=== PATIENT | female | born 1955 | race Caucasian/White ===

== ENCOUNTER 2018-06-03 09:43 | Emergency (ER) | payer SELFPAY ==
[2018-06-03] VITALS (7 sets, daily range): BP systolic 126–136; BP diastolic 65–84; PULSE 104–109; RESP 4–24; TEMP 36.8; O2SAT 94–96
--- NOTE | 2018-06-03 10:11 | DI.RAD_ITS ---
SYMPTOMS/DIAGNOSIS: COUGH, FEVER PA AND LATERAL CHEST: Comparison is made with 8Aug13. The cardiac and mediastinal contours have a normal appearance. The lungs appear clear. No infiltrate or effusion is seen. IMPRESSION: Negative chest x-ray.
[2018-06-03] MEDS: Acetaminophen 325 MG TAB 650 MG PO (10:21)
[2018-06-03] MEDS: predniSONE 20 MG TAB 60 MG PO (10:22)
[2018-06-03] MEDS: Albuterol/Ipratropium 3 ML UPD VIAL UPD ×2 (10:22→11:28)
[2018-06-03] MEDS: Benzonatate 100 MG CAP PO (10:22)
--- NOTE | 2018-06-03 10:35 | ED.GENADUL_ITS ---
Discharge Plan Disposition Patient Disposition: HOME Condition: Stable Discharge Details Chief Complaint: RespSymp Clinical Impression: Influenza, COPD (chronic obstructive pulmonary disease) Primary Care Provider: Morelia Mejia ED Provider: Jamie Lopez Home Meds and New Rx's Prescriptions: New prednisone 20 mg tablet 40 mg PO DAILY 4 Days Qty: 8 RF: 0 oseltamivir [Tamiflu] 75 mg capsule 75 mg PO Q12H 5 Days Qty: 10 RF: 0 Continued pantoprazole 40 MG tablet,delayed release (DR/EC) 40 mg PO DAILY RF: 0 fexofenadine [Aller-ease] 180 MG tablet 180 mg PO DAILY RF: 0 lisinopril 20 MG tablet 20 mg PO DAILY RF: 0 oxycodone 5 MG tablet 5 mg PO Q4H PRN PRNQty: 14 RF: 0 Advair Diskus 1 EACH blister with device 1 ea Inhalation DAILY Qty: 14 RF: 0 Ventolin HFA 200 PUFF HFA aerosol inhaler 2 puff Inhalation Q4H PRN PRN (Reason: shortness of breath or wheezing) Qty: 8 RF: 0 Discharge Instructions Instructions: Influenza (ED), COPD (Chronic Obstructive Pulmonary Disease) (ED) Additional Instructions: Return immediately to the emergency department for any new or significant worsening symptoms including severe shortness of breath, or any further concerns. Otherwise you should follow-up with your primary care provider next couple days and take medication as prescribed. Referrals: Morelia Mejia [Primary Care Provider] - (Please follow-up with your primary care provider next 1-2 days for reassessment) Discharge Data Discharge Date/Time-TO BE ENTERED AT DEPARTURE: 06/03/18 12:25 Medical Decision Making Patient presenting the emergency department for chief complaint of cold/flulike symptoms. Patient states that this started 2 days ago after being around someone who had similar symptoms. She is concern for pneumonia. Patient does have COPD but has been without her inhalers due to a lapse of her insurance. Patient states subjective fever, headache, body aches, nasal congestion, sore throat and cough with difficulty breathing. Physical exam shows significant diffuse wheezing throughout all lung anthony, sinus tenderness, and otherwise unremarkable exam. Patient is afebrile and not hypoxic at this time but is slightly tachycardic. Plan to check chest x-ray and influenza swab. Pending results patient given Tylenol, Motrin, DuoNeb, Tessalon Perles. After review of chest x-ray that shows no acute findings and no obvious infiltrates patient was reassessed. Patient does have slight improvement in wheezing plan on doing second nebulizer treatment. Influenza test was reviewed as positive and patient reassessed and has significant improvement in wheezing and now only mild scattered wheezes heard throughout. Patient was able to ambulate through the department and had minimal change in O2 saturation/not becoming hypoxic, and only mild elevation of heart rate. Patient started on Tamiflu and first dose given in the emergency department. Due to financial constraints care management was contacted to assist patient with home medications being prescribed. Care management stated that [facility] would be able to help patient with medications and reinstating her insurance. Care management was also informed that I request a 1-2-day follow-up with her primary care given patient having significant COPD and influenza to make sure the patient does not declining condition. After discussion of diagnosis and plan of care patient has no further needs, questions, or concerns and states clear understanding to return to the emergency department for any worsening symptoms. HPI General Mode of arrival: ambulatory . Date/Time Provider Initiated Documentation: 06/03/18 10:01 . Limitations to Documentation: no limitations . Information obtained by: patient and RN notes reviewed . History of Present Illness 62 year old F presents to the emergency department with the chief complaint of cough, fever, cold symptoms, described as moderate, with intensity rated at 2. Quality is described as aching, and is localized to the head. Patient reports no radiation. Patient started experiencing this day(s) (2) and it has been constant. No relieving factors improve symptom(s), No exacerbating factors reported . Patient did receive the following treatments prior to arrival, none Related Data Home Medications Medication Instructions Recorded Confirmed pantoprazole 40 mg PO DAILY 01/07/13 06/03/18 fexofenadine [Aller-ease] 180 mg PO DAILY 07/16/16 06/03/18 lisinopril 20 mg PO DAILY 07/16/16 06/03/18 oxycodone 5 mg PO Q4H PRN PRN #14 tab 07/17/16 06/03/18 Advair Diskus 1 ea INHALATION DAILY #14 each 06/03/18 Ventolin HFA 2 puff INHALATION Q4H PRN PRN #8 gm 06/03/18 oseltamivir [Tamiflu] 75 mg PO Q12H 5 Days #10 cap 06/03/18 prednisone 40 mg PO DAILY 4 Days #8 tab 06/03/18 Previous Rx's Medication Instructions Recorded oxycodone 5 mg PO Q4H PRN PRN #14 tab 07/17/16 Advair Diskus 1 ea INHALATION DAILY #14 each 06/03/18 Ventolin HFA 2 puff INHALATION Q4H PRN PRN #8 gm 06/03/18 oseltamivir [Tamiflu] 75 mg PO Q12H 5 Days #10 cap 06/03/18 prednisone 40 mg PO DAILY 4 Days #8 tab 06/03/18 Allergies Allergy/AdvReac Type Severity Reaction Status Date / Time Penicillins Allergy Severe Anaphylaxsi Unverified 06/03/18 09:52 s General Stated Complaint: RespSymp NANCI: 4 Review of Systems Constitutional Reports chills, Reports fatigue, Reports fever(s), Reports headache(s) and Reports malaise ENT Denies otalgia, Reports headache(s), Reports nasal congestion, Reports sinus pressure and Reports sore throat Cardiovascular Denies chest pain and Reports dyspnea Respiratory Reports chest congestion, Reports cough, Reports pain with cough and Reports dyspnea Gastrointestinal Denies abdominal pain, Denies nausea and Denies vomiting Musculoskeletal Denies joint swelling Integumentary/Breasts Denies rash Neurologic Reports headache(s) Endocrine Reports fatigue PFSH Medical History COPD (chronic obstructive pulmonary disease) (Chronic) Social History Smoking/Tobacco Use Status: Current every day Exam Const General: cooperative, comfortable and no acute distress Orientation: alert, awake and oriented x3 HENMT Head: normal to inspection Ears: hearing grossly normal bilaterally Face and sinus: sinus tenderness frontal and maxillary Mouth: oral mucosae normal Throat: uvula midline and abnormal tonsil bilaterally erythema (mild) Eyes General: appearance normal, both eyes and all related structures Conjunctivae: conjunctivae normal Sclera: sclerae normal Neck Neck: normal visual inspection, full ROM, no lymphadenopathy, meningismus present and no JVD Resp Effort & Inspection: normal respiratory effort, able to speak in complete sentences, audible wheezes, cough Quality of cough: actively coughing and not labored Auscultation: wheezes expiratory wheezes and scattered wheezes Cardio Rate: tachycardic Rhythm: regular rhythm Heart Sounds: S1 normal and S2 normal Skin General skin exam: no rashes or lesions noted and dry skin Rashes: no rashes Neuro General: alert, awake, oriented x3 and gait normal Course Vital Signs Temperature 36.8 C 06/03/18 09:49 Pulse 109 H 06/03/18 09:49 Respiratory Rate 16 06/03/18 09:49 Blood Pressure 126/84 06/03/18 09:49 Pulse Oximetry 96 06/03/18 09:49 Temperature 36.8 C 06/03/18 09:49 Temperature Source Skin 06/03/18 09:49 Pulse 109 H 06/03/18 09:49 Respiratory Rate 16 06/03/18 09:49 Respiratory Effort Non-Labored 06/03/18 09:54 Blood Pressure 126/84 06/03/18 09:49 Blood Pressure Position Sitting 06/03/18 09:49 Pulse Oximetry 96 06/03/18 09:49 Oxygen Delivery Method Room Air 06/03/18 09:49 Oxygen Flow Rate 0 06/03/18 09:49 Pain Level 10 06/03/18 09:49 Lab/Test Results Lab/Test Results: 06/03/18 10:27 Nasopharynx Influenza Types A,B Antigen - Pending
[2018-06-03] MEDS: Oseltamivir 75 MG CAP PO (11:28)
--- NOTE | 2018-06-04 07:54 | PDOC.ERCMPRO ---
Care Management Progress Note 06/04-Shmuel requested assistance with a 1-2 day f/u appt with PCP (Jackie) for flu and COPD exacerbation. Referral faxed to [facility]. Patient also states that her Medicaid has . She has no money to pay for her prescriptions. Patient was given a [facility] Brochure and sent over for assistance with reapplying for Medicaid and assistance in paying for scripts for today.
== END 2018-06-03 12:25 | disposition home or self-care (01) ==
PROVIDERS: Emergency Provider Nurse Practitioner Family; PCP Nurse Practitioner
DX: J10.1 Influenza due to other identified influenza virus with other respiratory manifestations (principal); J44.9 Chronic obstructive pulmonary disease, unspecified; F17.210 Nicotine dependence, cigarettes, uncomplicated
CPT/HCPCS: 87449; 94640; 99284; 71046; 99283; J7512; J7620

== ENCOUNTER 2022-12-16 21:30 | Emergency (ER) | payer MEDICARE, OTHER, SELFPAY ==
--- NOTE | 2022-12-16 21:15 | RT.EKG_ITS ---
APPROVED REPORT Exam: Resting ECG Reason for Exam: syncope Patient Location: E HR:93 bpm ECG Measurements Heart Rate 93 AXIS SD 118 P 50 QRSd 100 QRS 72 QT 384 T 50 QTc 479 Conclusion Sinus rhythm...normal P axis, V-rate 60- [address] segment or T wave abnormalities to suggest occlusive [place]
--- NOTE | 2022-12-16 21:30 | DI.CT_ITS ---
Exam(s) CT CHEST/ABD/PEL W EXAM: CT CHEST/ABD/PEL W CLINICAL HISTORY: SOB, right anterior chest TTP, fall down 3 steps TECHNIQUE: Imaging Protocol: Axial computed tomography images with coronal and sagittal reformatted images were created and reviewed CONTRAST MATERIAL: Intravenous: Omnipaque 350 contrast volume:100 mL Oral: No COMPARISON: No exams were available for comparison FINDINGS: The examination is limited due to patient motion artifact. CHEST: Tracheobronchial tree: Patent where visualized. Pulmonary parenchyma: There are few noncalcified pulmonary nodules. There is a 3 mm nodule in the ri ght lung apex. There is a 4 mm nodule in the left upper lobe. No architectural distortion. Visualized thyroid gland: Unremarkable. Mediastinum and Mirta: No dominant adenopathy or fluid collection. The esophagus is unremarkable. The re is a small hiatal hernia. Pleura: No effusion or pneumothorax. Heart: The heart is not dilated. Mild coronary artery calcification is present. No pericardial effus ion. Pulmonary arteries: Subsegmental pulmonary arteries are not well opacified. No central or segmental pulmonary emboli are seen. Aorta: Thoracic aorta non-dilated. There is no evidence of dissection. Mild atherosclerosis is prese nt. Lymph nodes: Within normal limits. Soft tissues: Unremarkable. Bones:Within normal limits for the patient's age. There appears to be a nondisplaced fracture involv ing the right aspect inferior endplate of T6. (Series 8 images 66 through 68). There is no signific ant loss in height of the vertebral body. ABDOMEN: Liver: Normal density. No measurable mass. Hepatomegaly. Portal, Superior Mesenteric, and Splenic Veins: Unremarkable. Gallbladder and Biliary Tract: No radiodense calculus or dilation. Pancreas: Normal density, no abnormal calcifications or inflammatory process. Spleen: Normal. Adrenals: No masses seen. Kidneys: Normal size, contour and axis. No radiodense stones or obstructive uropathy. No masses seen. Abdominal Aorta: Abdominal portion non-dilated. Atherosclerosis. Bowel: No obstruction or bowel wall thickening. There is no evidence of appendicitis. Peritoneal Cavity: No ascites, collection or mesenteric inflammatory response. No free air. Lymph Nodes: Within normal limits. Bones: Within normal limits for the patient's age. Soft Tissues: Unremarkable. PELVIS: Bladder: Symmetric distention, no gross wall thickening. Reproductive Organs: Unremarkable as visualized. Lymph Nodes: Within normal limits. Bones: Within normal limits. IMPRESSION: 1. No acute pulmonary process. 2. A few pulmonary nodules. The largest measures 4 mm. In low risk patients, no follow-up is defini tely recommended. In high risk patients (history of smoking or other risk factors), CT scan of the c hest in 12 months may be obtained. 3. Findings of a nondisplaced fracture involving the right aspect of the inferior endplate of T6. 4. No acute abdominal or pelvic organ injury. 5. Findings were discussed with Dr. Velazquez at 12:25 p.m. on 12/17/2022. RADIATION DOSE DELIVERED: 849.82mGy.cm Total DLP DATA REPOSITORY: All CT scans at this facility are submitted to the National Radiology Data Registry (NRDR) Dose Index Registry (DIR) with the [employer] (ACR). RADIATION OPTIMIZATION: All CT scans at this facility use at least one of these dose optimization te chniques: automated exposure control; mA and/or kV adjustment per patient size (includes targeted exa ms where dose is matched to clinical indication); or iterative reconstruction.
--- NOTE | 2022-12-16 21:30 | DI.CT_ITS ---
Exam(s) CT HEAD CERVICAL SPINE WO EXAM: CT HEAD CERVICAL SPINE WO CLINICAL HISTORY: possible syncope, fall down 2-3 steps, no HS. TECHNIQUE: Imaging Protocol: Axial computed tomography images with coronal and sagittal reformatted images were created and reviewed COMPARISON: No exams were available for comparison FINDINGS: The examination is limited due to patient motion artifact. CT Head: Ventricles and Extra axial spaces: Normal in size and morphology for the patient's age. Hemorrhage: None. Cerebral parenchyma: Normal. Midline shift: None. Brainstem/Cerebellum: Normal. Calvarium: Normal. Visualized Paranasal sinuses/Mastoids: Clear. Soft Tissues: Unremarkable. CT Cervical Spine: Bones: No acute fracture or subluxation. Degenerative changes are seen in the spine. Soft Tissues: Unremarkable. Lung Apices: Emphysematous changes are seen in the lung apices. There is a 3 mm nodule in the right upper lobe. Please refer to the CT scan of the chest abdomen and pelvis report for complete details. IMPRESSION: 1. No acute intracranial process. 2. No acute fracture or subluxation in the cervical spine. RADIATION DOSE DELIVERED: 1,137.17mGy.cm Total DLP DATA REPOSITORY: All CT scans at this facility are submitted to the National Radiology Data Registry (NRDR) Dose Index Registry (DIR) with the [employer] (ACR). RADIATION OPTIMIZATION: All CT scans at this facility use at least one of these dose optimization te chniques: automated exposure control; mA and/or kV adjustment per patient size (includes targeted exa ms where dose is matched to clinical indication); or iterative reconstruction.
[2022-12-16 21:38] VITALS: BP 125/63; PULSE 94; RESP 16; TEMP 36.6; O2SAT 96
[2022-12-16] MEDS: Albuterol/Ipratropium 3 ML UPD VIAL UPD (21:52)
--- NOTE | 2022-12-16 21:59 | ED.GENADUL_ITS ---
Discharge Plan Discharge Details Chief Complaint: Fall/Non TraumaCriteria Primary Care Provider: Morelia Mejia ED Provider: Meghan Batista Home Meds and New Rx's Prescriptions: No Action pantoprazole 40 MG tablet,delayed release (DR/EC) 40 mg PO DAILY Patient Comments: DECIDE SHE DIDNT NEED IT AND COSTS TOO MUCH MONEY fexofenadine [Aller-ease] 180 MG tablet 180 mg PO DAILY Patient Comments: DECIDE SHE DIDNT NEED IT AND COSTS TOO MUCH MONEY lisinopril 20 MG tablet 20 mg PO DAILY Patient Comments: DECIDE SHE DIDNT NEED IT AND COSTS TOO MUCH MONEY oxycodone 5 MG tablet 5 mg PO Q4H PRN PRNQty: 14 0RF Patient Comments: DECIDE SHE DIDNT NEED IT AND COSTS TOO MUCH MONEY fluticasone propion-salmeterol [Advair Diskus] 1 EACH blister with device 1 ea Inhalation DAILY Qty: 14 0RF Patient Comments: DECIDE SHE DIDNT NEED IT AND COSTS TOO MUCH MONEY albuterol sulfate [Ventolin HFA] 200 PUFF HFA aerosol inhaler 2 puff Inhalation Q4H PRN PRN (Reason: shortness of breath or wheezing) Qty: 8 0RF Patient Comments: DECIDE SHE DIDNT NEED IT AND COSTS TOO MUCH MONEY Medical Decision Making 67yo F with COPD, HTN, not on anticoagulation, presenting after fall. Arrives via EMS, history from EMS and patient. Large amount of ETOH consumption this evening, tripped going up stairs on 2 or 3rd step and fell backwards landing on her buttocks. No HS or LOC. Reports low back/coccyx pain. Vital signs reassuring on arrival, on exam she is clinically intoxicated, right anterior chest wall TTP, bilateral wheezing (reports not taking her breathing treatments today). Given duoneb treatment. With age, low back pain, chest tenderness, an d current intoxication CT keys scan ordered. CT head and c-spine with no traumatic findings. Labs ordered and reviewed; CBC & CMP with no actionable abnormalities, ETOH 230. EKG sinus rhythm, appropriate intervals, no ST segment or T wave abnormalities to suggest occlusive [place]. On reassessment breath sounds clear bilaterally, reports her breathing has much improved. Signed out to Dr. Thayer, patient radiology read on CT CAP and sober re-eval. Imaging Data Radiologic Study: Imaging: CT Scan (head and c spine) Radiologist's impression: IMPRESSION: No acute intracranial hemorrhage No acute cervical fracture 3mm right upper lobe nodule. Comparison with prior helpful. Otherwise, nonurgent chest CT recommended. Radiologic Study #2: Imaging: CT Scan Lab Data Labs: Laboratory Tests Range/Units 12/16/22 12/16/22 12/16/22 22:00 22:00 22:00 WBC (4.4-10.8) 10^3/uL 12.22 H RBC (3.93-5.22) 10^6/uL 4.25 Hgb (11.2-15.7) g/dL 13.1 Hct (36.0-46.0) % 38.9 MCV (80-95) fL 92 MCH (27.0-33.0) pg 30.8 MCHC (32.0-36.0) % 33.7 RDW (11.7-14.6) % 13.0 Plt Count (130-400) 10^3/uL 231 MPV (8.0-11.0) fL 9.5 Immature Gran % 1.1 Neutrophils % 68.9 Lymphocytes % 22.9 Monocytes % 5.2 Eosinophils % 1.6 Basophils % 0.3 Nucleated RBC % (0.0-0.3) % 0.0 Absolute Neutrophils (1.2-6.7) 10^3/uL 8.42 H Absolute Lymphocytes (1.2-3.4) 10^3/uL 2.80 Absolute Monocytes (0.1-0.8) 10^3/uL 0.64 Absolute Eosinophils (0.0-0.7) 10^3/uL 0.20 Absolute Basophils (0.0-0.2) 10^3/uL 0.04 Sodium (136-145) mmol/L 135 L Potassium (3.5-5.1) mmol/L 3.5 Chloride (98-107) mmol/L 100 Carbon Dioxide (21.0-32.0) mmol/L 22.5 Anion Gap (3-11) mmol/L 12.5 H BUN (7-18) mg/dL 10 Creatinine (0.55-1.02) mg/dL 0.8 Est GFR (CKD-EPI 2020) (mL/min/1.73m2) 81.21 Glucose (74-106) mg/dL 293 H Calcium (8.5-10.1) mg/dL 8.7 Magnesium (1.8-2.4) mg/dL 1.9 Total Bilirubin (0.2-1.0) mg/dL 0.3 AST (15-37) U/L 40 H ALT (14-59) U/L 37 Alkaline Phosphatase (46-116) U/L 111 Troponin I (<or=60) ng/L < 50 Total Protein (6.4-8.2) g/dL 7.9 Albumin (3.4-5.0) g/dL 3.6 Lipase (16-77) U/L 90 H Ethyl Alcohol (<10) mg/dL 229.3 H HPI General Mode of arrival: ambulatory . Date/Time Provider Initiated Documentation: 12/16/22 21:42 . Limitations to Documentation: altered mental status . Information obtained by: patient and EMS . HPI Narrative: 67yo F with COPD, HTN, not on anticoagulation, presenting after fall. Arrives via EMS. Reports drinking this evening, 5-6 beers and 2-3 shots and some more. Went to walk up stairs and tripped on 2nd or 3rd step, fell backwards and landed on her buttocks. No head strike or loss of consciousness. Reports low back pain, otherwise denies pain. Does report some shortness of breath, unclear onset, states she has not been taking her breathing treatments. Denies headache, neck pain, chest pain, abdominal pain, extremity pain, numbness, tingling, weakness, headache, nausea, vomiting, or other concerns. She was in her usual state of health this morning before this event. Related Data Home Medications Medication Instructions Recorded Confirmed pantoprazole 40 mg tablet,delayed 40 mg PO DAILY 01/07/13 12/16/22 release fexofenadine 180 mg tablet 180 mg PO DAILY 07/16/16 12/16/22 (Aller-ease) lisinopril 20 mg tablet 20 mg PO DAILY 07/16/16 12/16/22 oxycodone 5 mg tablet 5 mg PO Q4H PRN PRN ##14 07/17/16 12/16/22 albuterol sulfate 90 mcg/actuation 2 puff inhalation Q4H PRN PRN 06/03/18 12/16/22 aerosol inhaler (Ventolin HFA) shortness of breath or wheezing #8 grams fluticasone 250 mcg-salmeterol 50 1 ea inhalation DAILY #14 ea 06/03/18 12/16/22 mcg/dose blistr powdr for inhalation (Advair Diskus) Previous Rx's Medication Instructions Recorded oxycodone 5 mg tablet 5 mg PO Q4H PRN PRN ##14 07/17/16 albuterol sulfate 90 mcg/actuation 2 puff inhalation Q4H PRN PRN 06/03/18 aerosol inhaler (Ventolin HFA) shortness of breath or wheezing #8 grams fluticasone 250 mcg-salmeterol 50 1 ea inhalation DAILY #14 ea 06/03/18 mcg/dose blistr powdr for inhalation (Advair Diskus) Allergies Allergy/AdvReac Type Severity Reaction Status Date / Time Penicillins Allergy Severe Anaphylaxsi Unverified 12/16/22 21:43 s General Stated Complaint: Fall/Non TraumaCriteria NANCI: 3 Review of Systems Narrative: see HPI PFSH All Active Problems COPD (chronic obstructive pulmonary disease) (Chronic) Social History Smoking/Tobacco Use Status: Current every day Smoking risk assessment performed?: Yes Alcohol Intake: current Drug use: Never Do you feel safe at home: Yes Do you feel safe in your relationship?: Yes Exam Narrative Exam Narrative: GENERAL: Alert, in no acute distress. SKIN: Warm and well perfused. HEAD: Atraumatic, normocephalic without edema, discoloration or evidence of trauma. Facial bones without deformities or tenderness. EYES: PERRL. No scleral icterus or conjunctival injection. Extraocular muscles intact without nystagmus or diplopia. No proptosis or enophthalmos. MOUTH: Moist mucus membranes without blood. NECK: Trachea midline. No discolorations or edema. CV: Regular rate and rhythm, Normal s1 and s2. No murmurs, rubs, or gallops. PV: Radial pulses 2+ bilaterally and symmetric. Dorsalis pedis pulses 2+ bilaterally and symmetric. 2+ capillary refill. No extremity edema. CHEST: No abrasions or ecchymosis. Chest symmetric with respirations. Right anterior chest wall TTP. No crepitus. Diffuse wheeze bilaterally, no increased work of breathing. ABDOMEN: No ecchymosis or abrasions. Soft, nondistended, nontender. BACK: No abrasions, skin openings, or ecchymosis. Spine without bony tenderness, no step offs. PELVIC: Pelvis stable, nontender to lateral compression : Normal external genitalia. No ecchymosis or edema. MSK: No gross deformities or discolorations or lesions. Tolerates full range of motion of extremities without tenderness. NEURO: Alert and oriented to person, place, and time. GCS 15. Sensation grossly intact. Moves all extremities freely against gravity. Speech slightly slurred. Clinically intoxicated. Gait not tested. Course Vital Signs Vital signs: Vital Signs Temperature 36.6 C 12/16/22 21:38 Pulse 94 H 12/16/22 21:38 Respiratory Rate 16 12/16/22 21:38 Blood Pressure 125/63 12/16/22 21:38 Pulse Oximetry 96 12/16/22 21:38 Temperature 36.6 C 12/16/22 21:38 Pulse 94 H 12/16/22 21:38 Respiratory Rate 16 12/16/22 21:38 Respiratory Effort Normal 12/16/22 21:40 Blood Pressure 125/63 12/16/22 21:38 Pulse Oximetry 96 12/16/22 21:38 Oxygen Delivery Method Room Air 12/16/22 21:38 Oxygen Flow Rate 0 12/16/22 21:38 Pain Level 7 12/16/22 21:38 PAWSS Have you Been Recently Intoxicated or Drunk Within the Last 30 days?: Yes Have you Ever Experienced Previous Episodes of Alcohol Withdrawal?: No Have you ever Experienced Withdrawal Seizures?: No Have you ever Experienced Delirium Tremens(DT)s?: No Have you ever undergone Alcohol Rehabilitation Treatment (i.e, inpt ot outpatient treatment programs)?: No Have you ever Experienced Blackouts?: No Have you ever Combined Alcohol with other Downers within the last 90 days?: No Have you ever Combined Alcohol with any other Substance of Abuse during the last 90 days?: No Positive Blood Alcohol level on Presentation? [PCS.BAL]: Yes Evidence of Increased Autonomic Activity (i.e. HR>120, tremor, sweating, agitation, nausea)?: No Result: 2
[2022-12-16 22:18] LABS: Abs Immature Grans 0.13 10^3/uL (0.0-0.06); Absolute Basophil Count 0.04 10^3/uL (0.0-0.2); Absolute Monocyte Count 0.64 10^3/uL (0.1-0.8); Absolute Neutrophil Count 8.42 10^3/uL (1.2-6.7); Basophils % 0.3; Eosinophils % 1.6; HCT 38.9 % (36.0-46.0); HGB 13.1 g/dL (11.2-15.7); Immature Grans % 1.1; Lymphocytes % 22.9; MCH 30.8 pg (27.0-33.0); MCHC 33.7 % (32.0-36.0); MCV 92 fL (80-95); MPV 9.5 fL (8.0-11.0); Monocytes % 5.2; Neutrophils % 68.9; Platelet Count 231 10^3/uL (130-400); RBC 4.25 10^6/uL (3.93-5.22); RDW-SD 42.8 fL; WBC 12.22 10^3/uL (4.4-10.8)
[2022-12-16] MEDS: Normal Saline Flush 10 ML SYR IVP (22:31)
[2022-12-16] MEDS: Omnipaque 350 MG/ML 100 ML BTL IJ (22:31)
[2022-12-16] MEDS: Normal Saline - Diluent 50 ML VIAL IJ (22:31)
[2022-12-16 22:41] LABS: ALT 37 U/L (14-59); AST 40 U/L (15-37); Albumin 3.6 g/dL (3.4-5.0); Alkaline Phosphatase 111 U/L (46-116); Anion Gap 12.5 mmol/L (3-11); BUN 10 mg/dL (7-18); Bilirubin, Total 0.3 mg/dL (0.2-1.0); CO2 22.5 mmol/L (21.0-32.0); CREATININE 0.8 mg/dL (0.55-1.02); Calcium 8.7 mg/dL (8.5-10.1); Chloride 100 mmol/L (98-107); Estimated GFR 81.21 (mL/min/1.73m2); Glucose 293 mg/dL (74-106); Magnesium 1.9 mg/dL (1.8-2.4); Potassium 3.5 mmol/L (3.5-5.1); Sodium 135 mmol/L (136-145); Total Protein 7.9 g/dL (6.4-8.2)
[2022-12-16 22:46] LABS: ETHANOL BLOOD 229.3 mg/dL (<10); Lipase 90 U/L (16-77); Troponin I < 50 ng/L (<or=60)
--- OUTSIDE RECORDS SUMMARY | 2022-12-16 22:58 | XMS_ITS | Continuity of Care Document ---
Author Name [facility] Address [address] [place] [address] Organization [facility] Address [address] [place] [address] Care Team Providers Care Genetics Teacher Name Role Phone Adriana Burk Primary Care Physician Allergies, Adverse Reactions, Alerts Allergen Type Severity Reaction Last Updated Verified Status Penicillins Allergy February 01, 2020 Y Ac tive Medications Active Medications Medication Dose Units Route Sig Qty Days Start Date Status Ins tructions Atorvastatin 20 MG ORAL DAILY May Active Lisinopril 20 MG ORAL DAILY Decem 2018 Active Lansoprazole 15 MG ORAL DAILY May Active Albuterol Sulfate 2.5 MG INHALATION Q4H PRN For bronchospas m 120 May 26, 2019 Active Ipratropium-A lbuterol 3 ML INHALATION FOUR TIMES DAILY 180 May 26, 2019 Active Albuterol Sulfate [Proair Hfa] 2 PUFF INHALATION Q6H PRN For shortness of breath or wheezing 8.5 February 01, 2020 Active Discontinued Medications Medication Dose Units Route Sig Qty Days Start Date Discontinued Date Status Instructions Albuterol Sulfate [Proair Hfa] 1 PUFF INHALAT ION EVERY 4 to 6 HOURS PRN For Short ness Of Breat h Decembe r 2018April 15, 2021 Disconti nued Prednisone 60 MG ORAL DAILY 15 5 Decem be r 2018May 31, 2019 Disconti nued administer with food or milk Doxycycline Hyclate 100 MG ORAL TWICE A DAY 14 e r 2018February 01, 2020 Disconti nued Doxycycline Hyclate 100 MG ORAL TWICE A DAY 14 [facility] 2019April 15, 2021 Disconti nued Albuterol Sulfate 2.5 MG INHALAT ION EVERY 4 to 6 HOURS PRN For short ness of breat h or wheez ing 75 [facility] 2019April 15, 2021 Disconti nued Prednisone 40 MG ORAL DAILY 6 Septe er 2019April 15, 2021 Disconti nued Problem List Inactive/Resolved Problems Medical Problem Onset Date Status Tobacco use disorder, continuous Inactive Acute exacerbation of chronic obstructive pulmon giorgi disease Inactive Acute exacerbation of chroni c obstructive pulmonary disease (COPD) Inactive COPD exacerbation Inactive Procedures Procedure Date Status Chest 1 vw October 06, 2021 completed EKG October 06, 2021 active Chest 2 vw April 15, 2021 completed Relevant Diagnostic Tests and/or Laboratory Data Laboratory Results Test Date/Time Result Interp. Ref. Range Result Co mment White Blood Count October 06, 2021 10:21am 6.71 1000/mm3 4.8-10.8 Red Blood Count October 06, 2021 10:21am 4.08 M/mm3 Low 4.20-5.40 Hemoglobin October 06, 2021 10:21am 12.8 g/dL 12.0-16.0 Hematocrit October 06, 2021 10:21am 38.5 % 37-47 Mean Corpuscular Volume October 06, 2021 10:21am 94.4 fL 81.0-99.0 Mean Corpuscular Hemoglobin October 06, 2021 10:21am 31.4 pg High 27-31 Mean Corpuscular Hemoglobin Concent October 06, 2021 10:21am 33.2 g/dL 33-37 Red Cell Distribution Width October 06, 2021 10:21am 12.6 % 11.5-14.5 Platelet Count October 06, 2021 10:21am 219 1000/mm3 140-440 Mean Platelet Volume October 06, 2021 10:21am 10.4 fL 7.4-10.4 Neutrophils (%) (Auto) October 06, 2021 10:21am 75.5 % High 40.0-72.0 Lymphocytes (%) (Auto) October 06, 2021 10:21am 16.1 % Low 17-45 Monocytes (%) (Auto) October 06, 2021 10:21am 7.7 % 3-11 Eosinophils (%) (Auto) October 06, 2021 10:21am 0.0 % 0-3 Basophils (%) (Auto) October 06, 2021 10:21am 0.3 % 0-1 Immature Granulocyte % (Auto) October 06, 2021 10:21am 0.4 % 0-1 Neutrophils # (Auto) October 06, 2021 10:21am 5.06 1000/mm3 1.4-6.5 Lymphocytes # (Auto) October 06, 2021 10:21am 1.08 1000/mm3 Low 1.2-3.4 Monocytes # (Auto) October 06, 2021 10:21am 0.52 1000/mm3 0.0-0.8 Eosinophils # (Auto) October 06, 2021 10:21am 0.00 1000/mm3 0.0-0.7 Basophils # (Auto) October 06, 2021 10:21am 0.02 1000/mm3 0.0-0.1 Absolute Immature Granulocyte (auto October 06, 2021 10:21am 0.0 0-1 Differential Method October 06, 2021 10:21am Automated Influenza Type A (RT-PCR) April 15, 2021 9:13am Not detected Influenza Type B (RT-PCR) April 15, 2021 9:13am Not detected Respiratory Syncytial Virus (RT-PCR April 15, 2021 9:13am Not detected SARS-CoV-2 RNA (RT-PCR) April 15, 2021 9:13am Negative Note: This RT-PC R assay is intended for the in vitro qualitative detection of nucleic acid from SARS-CoV-2. This test has not been FDA cleared or approved. This test has been authorized by the FDA under an Emergency Use Authorization (EUA) for use by authorized laboratories. Fact sheets for providers can be found at: fda.gov/media/61352 5/download Fact sheets for patients can be found at: fda.gov/media/93754 7/download Chief Complaint and Reason for Visit Encounter Admit Date Chief Complaint Reason for V isit Registered Emergency October 06, 2021 8:58am COUGH,SOB Hospital Discharge Instructions No known hospital discharge instructions. Hospital Discharge Medications Medication Dose Units Route Sig Qty Days Order Date Status Ins tructions Atorvastatin 20 MG ORAL DAILY Dec emb2018 Active Lisinopril 20 MG ORAL DAILY Decem elizabeth 2018 Active Lansoprazole 15 MG ORAL DAILY Dec emb2018 Active Albuterol Sulfate 1 PUFF INHALATION EVERY 4 to 6 HOURS PRN For Shortnes s Of Breath May 26, 2019 Discontinue d Albuterol Sulfate 2.5 MG INHALATION Q4H PRN For bronchos pasm 120 May 26, 2019 Active Ipratropium-A lbuterol 3 ML INHALATION FOUR TIMES DAILY 180 May 26, 2019 Active Prednisone 60 MG ORAL DAILY 15 5 Decem elizabeth 2018 Discontinue d administer with food or milk Doxycycline Hyclate 100 MG ORAL TWICE A DAY 14 May 26, 2019 Discontinue d Doxycycline Hyclate 100 MG ORAL TWICE A DAY 14 February 01, 2020 Discontinue d Albuterol Sulfate 2.5 MG INHALATION EVERY 4 to 6 HOURS PRN For shortnes s of breath or wheezing 75 February 01, 2020 Discontinue d Prednisone 40 MG ORAL DAILY 6 Septe mb2019 Discontinue d Albuterol Sulfate 2 PUFF INHALATION Q6H PRN For shortnes s of breath or wheezing 8.5 February 01, 2020 Active Encounters Encounter Facility Location Admit/Visit Date Discharge/Departure Date Attending Provider Registered Emergency [facility] Emergency Department October 06, 2021 8:58am Departed Referred [facility] Pathology May 14, 2021 7:04pm May 14, 2021 7:05pm Adriana Burk Departed Emergency [facility] Emergency Department April 15, 2021 8:50am April 15, 2021 10:48am Functional Status Query Response Date Recorded Comment Speech Appropriate April 15, 2021 9:10am Query Response Date Recorded Comment Living Situation Home With Family April 15, 2021 10:48am Immunizations No known immunizations. Plan of Care No Known Plan of Care Information Social History Query Response Date Recorded Comment Alcohol Use Yes October 06, 2021 10:13am rarely Smoking Status Current every day smoker October 06, 2021 10 :13am substance use type does not use October 06, 2021 10:13am Query Response Start Date Stop Date Smoking Status Current every day smoker Vital Signs Vital Reading Result Reference Range Collection Date/Time Weight 63.503 kg October 06, 2021 9:0 8am Temperature 97.5 F 97.6 F-99.6 F October 06, 2021 9: 08am Pulse 102 BPM 60-100 October 06, 2021 10: 08am Respiration 24 RPM 12-24 October 06, 2021 10: 08am Pulse Oximetry 95 % 95-100 October 06, 2021 9 :08am Blood Pressure Systolic 134 100-140 October 06, 2021 9:08am Blood Pressure Diastolic 67 50-85 October 06, 2021 9:08am
--- OUTSIDE RECORDS SUMMARY | 2022-12-16 22:58 | XMS_ITS | Continuity of Care Document ---
Author Name [facility] Address [address] [place] [id number] Organization [facility] Address [address] [place] [address] Care Team Providers Care Valet Service Attendant Name Role Phone PCP, of Choice Primary Care Physician Adriana Parmar Attending Physician Allergies, Adverse Reactions, Alerts Allergen Type [...] 100 MG ORAL TWICE A DAY 14 Decembe r 2018February 01, 2020 Disconti nued Doxycycline Hyclate 100 MG ORAL TWICE A DAY 14 [facility] 2019April 15, 2021 Disconti nued Albuterol Sulfate 2.5 MG INHALAT ION EVERY 4 to 6 HOURS PRN For short ness of breat h or wheez ing 75 [facility] 2019April 15, 2021 Disconti nued Prednisone 40 MG ORAL DAILY 6 Septe er 2019April 15, 2021 Disconti nued Problem List Inactive/Resolved Problems Medical Problem Onset Date Status Acute exacerbation of chronic obstructive pulmon giorgi disease Inactive COPD exacerbation Inactive Procedures Procedure Date Status Group A Streptococcus Screen (LAZ) September 27 completed Relevant Diagnostic Tests and/or Laboratory Data Laboratory Results Test Date/Time Result Interp. Ref. Range Result Co mment Coronavirus 2019 PCR Interp September 27, 2020 1:10pm Negative This test has no t been FDA cleared or approved. This test has been authorized by FDA under an EUA for use by authorized laboratories. This test has been authorized only for detection of nucleic acid from 2019-nCoV, not for any other viruses or pathogens. This test is only authorized for the duration of the declaration that circumstances exist justifying the authorization of emergency use of in vitro diagnostic tests for detection and/or diagnosis of 2019-nCoV under section 564(b)(1) of Act, 21 U.S.C ? 360bbb-3(b) (1), unless the authorization is terminated or revoked sooner. Negative results do not preclude 2019-nCoV infection and should not be used as the sole basis for treatment or other patient management decisions. Negative results must be combined with clinical observations, patient history, and epidemiological information. Performed on the [email or web address] Fusion instrument Microbiology Results Procedure Source Result Collection Date/Time Resu lt Date/Time Group A Streptococcus Screen (LAZ) Throat No results entered September 27, 2020 1:04pm Hospital Discharge Instructions No known hospital discharge instructions. Hospital Discharge Medications Medication Dose Units Route Sig Qty Days Order Date Status Ins tructions Atorvastatin 20 MG ORAL DAILY May Active Lisinopril 20 MG ORAL DAILY Decem 2018 Active Lansoprazole 15 MG ORAL DAILY May Active Albuterol Sulfate 1 PUFF INHALATION EVERY [...] Prednisone 40 MG ORAL DAILY 6 Septe mber 2019 Discontinue d Albuterol Sulfate 2 PUFF INHALATION Q6H PRN For shortnes s of breath or wheezing 8.5 February 01, 2020 Active Encounters Encounter Facility Location Admit/Visit Date Discharge/Departure Date Attending Provider Departed Referred [facility] September 27, 2020 4:53pm September 27, 2020 4:54pm Adriana Burk Functional Status Query Response Date Recorded Comment Living Situation Home With Family April 15, 2021 9:04am Immunizations No known immunizations. Plan of Care No Known Plan of Care Information Social History Query Response Date Recorded Comment Alcohol Use Yes April 15, 2021 9:18am mark coffey Smoking Status Current every day smoker April 15 9:18am substance use type does not use April 15, 2021 9:18 am Query Response Start Date Stop Date Smoking Status Current every day smoker Vital Signs No known vital signs results.
--- OUTSIDE RECORDS SUMMARY | 2022-12-16 22:58 | XMS_ITS | Continuity of Care Document ---
Author Name [facility] Address [address] [place] [id number] Organization [facility] Address [address] [place] [address] Care Team Providers Care Table Maker Name Role Phone PCP, of Choice Primary Care Physician Adriana Parmar Attending Physician Allergies, Adverse Reactions, Alerts Allergen Type Severity Reaction Last Updated Verified Status Penicillins Allergy February 01, 2020 Y Ac tive Medications Active Medications Medication Dose Units Route Sig Qty Days Start Date Status Ins tructions Atorvastatin 20 MG ORAL DAILY May Active Lisinopril 20 MG ORAL DAILY Dece2018 Active Lansoprazole 15 MG ORAL DAILY May Active Albuterol Sulfate [Proair Hfa] 1 PUFF INHALATION EVERY 4 to 6 HOURS PRN For Shortness Of Breath May 26, 2019 Active Albuterol Sulfate 2.5 MG INHALATION Q4H PRN For bronchospas m 120 May 26, 2019 Active Ipratropium-A lbuterol 3 ML INHALATION FOUR TIMES DAILY 180 May 26, 2019 Active Doxycycline Hyclate 100 MG ORAL TWICE A DAY 14 2019 Active Albuterol Sulfate 2.5 MG INHALATION EVERY 4 to 6 HOURS PRN For shortness of breath or wheezing 75 February 01, 2020 Active Prednisone 40 MG ORAL DAILY 6 2019 Active Albuterol Sulfate [Proair Hfa] 2 PUFF INHALATION Q6H PRN For shortness of breath or wheezing 8.5 February 01, 2020 Active Discontinued Medications Medication Dose Units Route Sig Qty Days Start Date Discontinued Date Status Instructions Prednisone 60 MG ORAL DAILY 15 5 Dece2018May 31, 2019 Disconti nued administer with food or milk Doxycycline Hyclate 100 MG ORAL TWICE A DAY 14 Decemb r 2018February 01, 2020 Disconti nued Problem List Inactive/Resolved Problems Medical Problem Onset Date Status Acute exacerbation of chronic obstructive pulmon giorgi disease Inactive COPD exacerbation Inactive Procedures Procedure Date Status Group A Streptococcus Screen (LAZ) September 27 1 active Relevant Diagnostic Tests and/or Laboratory Data Laboratory Results Test Date/Time Result Interp. Ref. Range Result Co mment Coronavirus (COVID-19)(PCR) February 02, 2020 1:00pm Negative 2018-novel Coronavirus (2019-nCoV) not detected by the qRT-PCR assay. Consider testing for other respiratory viruses or re-collecting for 2019-nCoV testing. Note: Optimum timing for peak viral levels during infections caused by 2019-nCoV have not been determined. Collection of multiple specimens from the same patient may be necessary to detect the virus. Limitations Positive results are indicative of active infection with SARS-CoV-2 but do not rule out bacterial infection or co-infection with other viruses. The agent detected may not be the definite cause of disease. In addition, detection of viral RNA may not indicate the presence of infectious virus or that SARS-CoV-2 is the causative agent for clinical symptoms. Negative results do not preclude SARS-CoV-2 infection and should not be used as the sole basis for patient management decisions. Negative results must be combined with clinical observations, patient history, and epidemiological information. False negative results may also occur if amplification inhibitors are present in the specimen or if inadequate numbers of organisms are present in the specimen. Optimum specimen types and timing for peak viral levels during infections caused by SARS-CoV-2 have not been fully determined. Collection of multiple specimens (types and time points) from the same patient may be necessary to detect the virus. The test was validated for use with upper respiratory specimens obtained via nasopharyngeal or oropharyngeal swabs in VTM, UTM, M4, M5, M6, saline, and MTM media. The performance of this test has not been established for other specimens. Specimens collected using other FDA recommended Specimen Collection Materials listed in the FDA COVID-[employer] communication (August 26, 2019) are processed with the caveat that they were not all validated for use with this test and the result must be interpreted in this context. Furthermore, a false negative results may occur if a specimen is improperly collected, transported or handled. If the virus mutates in the RT-PCR target region, SARS-CoV-2 may not be detected or may be detected less predictably. Inhibitors or other types of interference may produce a false negative result. An interference study evaluating the effect of common cold medications was not performed. This test is not FDA-cleared but its performance characteristics were established by our CLIA-certified, CAP-accredited, high complexity laboratory in accordance with CLIA regulations, [employer] (CAP) guidelines (Aug 19, 2019), and FDA guidance (Jul 31, 2019). This test is only for use under the Food and Drug Administration's Emergency Use Authorization. Reference Lab Test Performing Site February 02, 2020 1:00pm [employer] COVID Source: TERMINAL MANAGER Please indicate the Triage Tier2 Test performed [place] [address] Hospital Discharge Instructions No known hospital discharge [...] Shortnes s Of Breath May 26, 2019 Active Albuterol Sulfate 2.5 MG INHALATION Q4H PRN For bronchos pasm 120 May 26, 2019 Active Ipratropium-A lbuterol 3 ML INHALATION FOUR TIMES DAILY 180 May 26, 2019 Active Prednisone 60 MG ORAL DAILY 15 5 2018 Discontinue d administer with food or milk Doxycycline Hyclate 100 MG ORAL TWICE A DAY 14 May 26, 2019 Discontinue d Doxycycline Hyclate 100 MG ORAL TWICE A DAY 14 February 01, 2020 Active Albuterol Sulfate 2.5 MG INHALATION EVERY 4 to 6 HOURS PRN For shortnes s of breath or wheezing 75 February 01, 2020 Active Prednisone 40 MG ORAL DAILY 6 Septe 2019 Active Albuterol Sulfate 2 PUFF INHALATION Q6H PRN For shortnes s of breath or wheezing 8.5 February 01, 2020 Active Encounters Encounter Facility Location Admit/Visit Date Discharge/Departure Date Attending Provider Departed Referred [facility] September 27, 2020 4:53pm September 27, 2020 4:54pm Adriana Burk Departed Clinical [facility] February 02, 2020 8:49am February 02, 2020 8:50am Tennille Armendariz Departed Emergency [facility] February 01, 2020 1:21pm February 01, 2020 2:16pm Functional Status Query Response Date Recorded Comment Living Situation With Family February 01, 2020 1:44pm Immunizations No known immunizations. Plan of Care No Known Plan of Care Information Social History Query Response Date Recorded Comment Alcohol Use Yes February 01, 2020 1:44pm rar alexx Smoking Status Current every day smoker January 31 1:44pm substance use type does not use February 01, 2020 1:44 pm Query Response Start Date Stop Date Smoking Status Current every day smoker Vital Signs Vital Reading Result Reference Range Collection Date/Time Weight 63.503 kg January 31 1:27pm Temperature 98.0 F 97.6 F-99.6 F January 31 1:27pm Pulse 83 BPM 60-100 January 31 1:27pm Pulse Oximetry 96 % 95-100 February 01, 2020 1:27pm Blood Pressure Systolic 148 100-140 Sept ember 2019 1:27pm Blood Pressure Diastolic 66 50-85 Sep tember 2019 1:27pm
--- OUTSIDE RECORDS SUMMARY | 2022-12-16 22:58 | XMS_ITS | Continuity of Care Document ---
Author Name [facility] Address [address] [place] [address] Organization [facility] Address [address] [place] [address] Care Team Providers Care Bead Filler Name Role Phone Adriana Burk Primary Care Physician [phone] Adriana Burk Attending Physician [phone] Allergies, Adverse Reactions, Alerts Allergen Type Severity [...] 100 MG ORAL TWICE A DAY 14 mbe r 2018February 01, 2020 Disconti nued Doxycycline Hyclate 100 MG ORAL TWICE A DAY 14 Sept er 1, 2020 April 15, 2021 Disconti nued Albuterol Sulfate 2.5 MG INHALAT ION EVERY 4 to 6 HOURS PRN For short ness of breat h or wheez ing 75 [facility] er 2019April 15, 2021 Disconti nued Prednisone 40 MG ORAL DAILY 6 Septe mb er 2019April 15, 2021 Disconti nued Problem List Inactive/Resolved Problems Medical Problem Onset Date Status Tobacco use disorder, continuous Inactive Acute exacerbation of chronic obstructive pulmon giorgi disease Inactive Acute exacerbation of chroni c obstructive pulmonary disease (COPD) Inactive COPD exacerbation Inactive Procedures Procedure Date Status Chest 2 vw April 15, 2021 completed Group A Streptococcus Screen (LAZ) September 27 completed Relevant Diagnostic Tests and/or Laboratory Data Laboratory Results Test Date/Time Result Interp. Ref. Range Result Co mment Influenza Type A (RT-PCR) April 15, 2021 [...] sheets for providers can be found at: fda.gov/media/32819 5/download Fact sheets for patients can be found at: fda.gov/media/88732 7/download Coronavirus 2019 PCR Interp September 27, 2020 [...] history, and epidemiological information. Performed on the [employer] Fusion instrument Microbiology Results Procedure Source Result [...] 40 MG ORAL DAILY 6 Septe 2019 Discontinue d Albuterol Sulfate 2 PUFF INHALATION Q6H PRN For shortnes s of breath or wheezing 8.5 February 01, 2020 Active Encounters Encounter Facility Location Admit/Visit Date Discharge/Departure Date Attending Provider Departed Referred [facility] Pathology May 14, 2021 7:04pm May 14, 2021 7:05pm Adriana Burk Departed Emergency [facility] Emergency Department April 15, 2021 8:50am April 15, 2021 10:48am Departed Referred [facility] September 27, 2020 4:53pm September 27, [...] Alcohol Use Yes April 15, 2021 9:18am rar alexx Smoking Status Current every day smoker April 15 9:18am substance use type does not use April 15, 2021 9:18 am Query Response Start Date Stop Date Smoking Status Current every day smoker Vital Signs Vital Reading Result Reference Range Collection Date/Time Weight 63.503 kg April 15 9:00am Pulse 94 BPM 60-100 April 15 10:42am Respiration 18 RPM 12-24 April 15 10:42am Pulse Oximetry 95 % 95-100 April 15, 2021 10:42am Blood Pressure Systolic 122 100-140 [facility]2020 10:42am Blood Pressure Diastolic 78 50-85 Apr [facility]2020 10:42am
--- OUTSIDE RECORDS SUMMARY | 2022-12-16 22:58 | XMS_ITS | Continuity of Care Document ---
Author Name [facility] Address [address] [place] [address] Organization [facility] Address [address] [place] [address] Care Team Providers Care Program Services Planner Name Role Phone Adriana Burk Primary Care [...] 100 MG ORAL TWICE A DAY 14 Decee r 2018February 01, 2020 Disconti nued Doxycycline Hyclate 100 MG ORAL TWICE A DAY 14 [facility] 2019April 15, 2021 Disconti nued Albuterol Sulfate 2.5 MG INHALAT ION EVERY 4 to 6 HOURS PRN For short ness of breat h or wheez ing 75 [facility] 2019April 15, 2021 Disconti nued Prednisone 40 MG ORAL DAILY 6 Septe er 2019April 15, 2021 Disconti nued Problem List Active Problems Medical Problem Onset Date Status Tobacco use disorder, continuous Active Acute exacerbation of chronic obstructive pulmon giorgi disease (COPD) Active Inactive/Resolved Problems Medical Problem Onset Date Status [...] history, and epidemiological information. Performed on the [employer] Fusion instrument Microbiology Results Procedure Source Result Collection Date/Time Resu lt Date/Time Group A Streptococcus Screen (LAZ) Throat No results entered September 27, 2020 1:04pm Chief Complaint and Reason for Visit Encounter Admit Date Chief Complaint Reason for V isit Departed Emergency April 15, 2021 8:50am SOB Hospital Discharge Instructions Additional Discharge Instructions use th e albuterol inhaler 2 puffs every 4 hrs as needed.... Try to picking belt operator your medications in the pharmacy as soon as you are able. I would contact your primary care provider's office at the [facility] as they do have people in the office that can help you with your Medicaid application. You can also get help from the [employer]. Once again, please consider smoking cessation. Instruction/Education Provided Chronic O bstructive Pulmonary Disease (COPD) (DC) How to Use a Metered Dose Inhaler ED Hospital Discharge Medications Medication Dose Units Route [...] Admit/Visit Date Discharge/Departure Date Attending Provider Departed Emergency [facility] Emergency Department April 15, 2021 8:50am April 15, 2021 10:48am Departed Referred [facility] September 27, 2020 4:53pm September 27, 2020 4:54pm Adriana Burk Functional Status Query Response Date Recorded Comment Speech Appropriate April 15, 2021 9:10am Query Response Date Recorded Comment Living Situation Home With Family April 15, 2021 10:48am Immunizations No known immunizations. Plan of Care Instructions Chronic Obstructive Pulmonar y Disease (COPD) (DC) How to Use a Metered Dose Inhaler ED Social History Query Response Date Recorded Comment Alcohol Use Yes April 15, 2021 9:18am rar alexx Smoking Status Current every day smoker April 15 021 9:18am substance use type does not use [...] 2021 10:42am Blood Pressure Systolic 122 100-140 [facility]2020 10:42am Blood Pressure Diastolic 78 50-85 Apr [facility] 2020 10:42am
--- OUTSIDE RECORDS SUMMARY | 2022-12-16 22:58 | XMS_ITS | Continuity of Care Document ---
Author Name Address [address] [place] [address] Organization Address [address] [place] [address] Care Team Providers Care Skiver Box Toe Name Role Phone Out of Town, Provider Primary Care Physician Tennille Escobedo Attending Physician Allergies, Adverse Reactions, Alerts Allergen [...] 100 MG ORAL TWICE A DAY 14 2018February 01, 2020 Disconti nued Problem List Inactive/Resolved Problems Medical Problem Onset Date Status Acute exacerbation of chronic obstructive pulmon giorgi disease Inactive COPD exacerbation Inactive Procedures Procedure Date Status Chest 2 vw May 26, 2019 completed INTERFACE ELECTROCARDIOGRAM May 26, 2019 co mpleted Relevant Diagnostic Tests and/or Laboratory Data No known relevant diagnostic tests, laboratory data, and/or discharge summary. Advance Directives Advance Directive Response Recorded Date/ Time Do we have a copy on file here at [facility]? No May 26, 2019 8:47pm Does patient have an Advanced Directive? No May 26, 2019 8:47pm Pt has a Living Will? No May [id number] 8:47pm Pt has a Power of Referral Agent? No Dece 2018 8:47pm Chief Complaint and Reason for Visit Encounter Admit Date Chief Complaint Reason for V isit Departed Clinical February 02, 2020 8:49am COVID SWAB Hospital Discharge Instructions No known hospital discharge instructions. Hospital Discharge Medications Medication Dose Units Route Sig Qty Days Order Date Status Ins tructions Atorvastatin 20 MG ORAL DAILY May Active Lisinopril 20 MG ORAL DAILY 2018 Active Lansoprazole 15 MG ORAL DAILY [...] Admit/Visit Date Discharge/Departure Date Attending Provider Departed Clinical Mary February 02, 2020 8:49am February 02, 2020 8:50am Tennille Armendariz Departed Emergency [facility] [place] February 01, 2020 1:21pm February 01, 2020 2:16pm Departed Emergency Emergency Department May 26, 2019 8:24pm May 26, 2019 10:03pm Functional Status Query Response Date Recorded Comment Comprehension Ability Understands Concepts May 8:48pm Query Response Date Recorded Comment Living Situation With Family February 01, 2020 1:44pm Immunizations No known immunizations. Payers Payer Name Policy Type Covered Democrat Covered Democrat Id Relationship Subscriber Subscriber Id SELF PAY Personal Plan of Care No Known Plan of [...] Pulse 83 BPM 60-100 January 31 1:27pm Respiration 16 RPM 12-24 May 26 10:02pm Pulse Oximetry 96 % 95-100 February 01, 2020 1:27pm Blood Pressure Systolic 148 100-140 Sept emb2019 1:27pm Blood Pressure Diastolic 66 50-85 Sep tember 2019 1:27pm
--- OUTSIDE RECORDS SUMMARY | 2022-12-16 22:58 | XMS_ITS | Continuity of Care Document ---
Author Name [facility] Address [address] [place] [address] Organization [facility] Address [address] [place] [address] Care Team Providers Care Rope Tier Name Role Phone Adriana Burk Primary Care Physician [phone] Allergies, Adverse Reactions, Alerts Allergen Type Severity [...] 100 MG ORAL TWICE A DAY [facility] 2019[facility] 15, 2021 Disconti nued Albuterol Sulfate 2.5 MG INHALAT ION EVERY 4 to 6 HOURS PRN For short ness of breat h or wheez ing 75 [facility] er 2019April 15, 2021 Disconti nued Prednisone [...] sheets for providers can be found at: fda.gov/media/87316 5/download Fact sheets for patients can be found at: fda.gov/media/46527 7/download Coronavirus 2019 PCR Interp September 27, [...] history, and epidemiological information. Performed on the [email or web address] Fusion instrument Microbiology Results Procedure Source Result [...] every 4 hrs as needed.... Try to corn picker your medications in the pharmacy as soon as you are able. I would contact your primary care provider's office at the [facility] as they do have people in the office that can help you with your Medicaid application. You can also get help from the [employer] on Aging. Once again, please consider [...] Date Discharge/Departure Date Attending Provider Departed Emergency [facility] Emergency Department April 15, 2021 8:50am April 15, 2021 10:48am Departed Referred [facility] September [...] 60-100 April 15 10:42am Respiration 18 RPM 12-April 15 10:42am Pulse Oximetry 95 % 95-100 April 15, 2021 10:42am Blood Pressure Systolic 122 100-140 [facility] 10:42am Blood Pressure Diastolic 78 50-85 [facility] 2020 10:42am
--- OUTSIDE RECORDS SUMMARY | 2022-12-16 22:58 | XMS_ITS | Continuity of Care Document ---
Author Name [facility] Address [address] [place] [address] Organization [facility] Address [address] [place] [address] Care Team Providers Care Support Specialist Name Role Phone Adriana Burk Primary Care [...] or wheezing 8.5 February 01, 2020 Active Prednisone 60 MG ORAL DAILY 15 September Active Oseltamivir [Tamiflu] 75 MG ORAL TWICE A DAY 10 5 October 06, 2021 Active Discontinued Medications Medication Dose Units Route [...] 100 [facility], 2021 Disconti nued Albuterol Sulfate 2.5 MG INHALAT ION EVERY 4 to 6 HOURS PRN For short ness of breat h or wheez ing [facility] 15, 2021 Disconti nued Prednisone 40 MG ORAL DAILY 6 er 2019April 15, 2021 Disconti nued Problem List Inactive/Resolved Problems Medical Problem Onset Date Status Influenza A Inactive Tobacco use disorder, continuous Inactive Acute exacerbation of chronic obstructive pulmon giorgi disease Inactive Acute exacerbation of chroni c obstructive pulmonary disease (COPD) Inactive COPD exacerbation Inactive COPD exacerbation Inactive Procedures Procedure Date Status Chest 1 vw October 06, 2021 completed EKG October 06, 2021 completed Chest 2 vw April 15, 2021 completed [...] Differential Method October 06, 2021 10:21am Automated Sodium Level October 06, 2021 10:21am 133 mmol/L Low 137-145 Potassium Level October 06, 2021 10:21am 4.3 mmol/L 3.6-5.0 Chloride Level October 06, 2021 10:21am 98 mmol/L 98-107 Carbon Dioxide Level October 06, 2021 10:21am 23 mmol/L 22-30 Anion Gap October 06, 2021 10:21am 12 7-16 Blood Urea Nitrogen October 06, 2021 10:21am 10 mg/dL 7-17 Creatinine October 06, 2021 10:21am 0.55 mg/dL 0.52-1.04 Glomerular Filtration Rate Calc October 06, 2021 10:21am > 60 mL/min 60.0- Glucose Level October 06, 2021 10:21am 293 mg/dL High 70-100 Calcium Level October 06, 2021 10:21am 9.2 mg/dL 8.4-10.2 Calcium Adjusted for Albumin October 06, 2021 10:21am 9.3 mg/dL 8.4-10.2 Total Bilirubin October 06, 2021 10:21am 0.6 mg/dL 0.2-1.3 Aspartate Amino Transf (AST/SGOT) October 06, 2021 10:21am 36 U/L 14-36 Alanine Aminotransferase (ALT/SGPT) October 06, 2021 10:21am 25 U/L As of 10/01/19, th e Reference Range for ALT/SGPT for adult patients has been updated. The Reference Range for ALT/SGPT has not been established for patients <18 years of age. Total Protein October 06, 2021 10:21am 7.4 g/dL 6.3-8.2 Albumin October 06, 2021 10:21am 4.2 g/dL 3.5-5.0 Alkaline Phosphatase October 06, 2021 10:21am 103 U/L 38-126 Influenza Type A (RT-PCR) October 06, 2021 10:12am Positive Influenza Type B (RT-PCR) October 06, 2021 10:12am Negative Respiratory Syncytial Virus (RT-PCR October 06, 2021 10:12am Negative SARS-CoV-2 RNA (RT-PCR) October 06, 2021 10:12am Negative Note: This RT-PC R assay is intended for the in vitro qualitative detection of nucleic acid from SARS-CoV-2. This test has not been FDA cleared or approved. This test has been authorized by the FDA under an Emergency Use Authorization (EUA) for use by authorized laboratories. Fact sheets for providers can be found at: fda.gov/media/1363 13/download Fact sheets for patients can be found at: fda.gov/media/1363 12/download New reagent in use as of 04/19/2021. Venous Blood pH October 06, 2021 10:21am 7.41 pH 7.31-7.41 Venous Blood pCO2 at Patient Temp October 06, 2021 10:21am 35 mmHg Low 41-51 Venous Blood HCO3 October 06, 2021 10:21am 22.4 mmol/L Low 23-30 Venous Blood Base Excess October 06, 2021 10:21am -2.0 mmol/L -2.0-2.0 Chief Complaint and Reason for Visit Encounter Admit Date Chief Complaint Reason for V isit Departed Emergency October 06, 2021 8:58am COUGH,SOB Hospital [...] 60 MG ORAL DAILY 15 5 Decem 2018 Discontinue d administer with food or [...] or wheezing 8.5 February 01, 2020 Active Prednisone 60 MG ORAL DAILY 15 September Active Oseltamivir 75 MG ORAL TWICE A DAY 10 5 October 06, 2021 Active Encounters Encounter Facility Location Admit/Visit Date Discharge/Departure Date Attending Provider Departed Emergency [facility] Emergency Department October 06, 2021 8:58am October 06, 2021 12:27pm Departed Referred [facility] Pathology May 14, 2021 7:04pm May 14, 2021 7:05pm Adriana Burk Departed Emergency [facility] Emergency Department April 15, 2021 8:50am April 15, 2021 10:48am Functional Status Query Response Date Recorded Comment Speech Appropriate April 15, 2021 9:10am Query Response Date Recorded Comment Living Situation Home With Family October 06, 2021 12:27pm Immunizations No known immunizations. Plan of Care Instructions Chronic Obstructive Pulmonar y Disease (COPD) (DC) Flu, Adult (DC) Social History Query Response Date Recorded Comment Alcohol Use Yes October 06, 2021 11:08am rarely Smoking Status Current every day smoker October 06, 2021 11 :08am substance use type does not use October 06, 2021 11:08am Query Response Start Date Stop Date Smoking Status Current every day smoker Vital Signs Vital Reading Result Reference Range Collection Date/Time Weight 63.503 kg October 06, 2021 9:0 8am Temperature 97.5 F 97.6 F-99.6 F October 06, 2021 9: 08am Pulse 100 BPM 60-100 October 06, 2021 12: 26pm Respiration 30 RPM 12-October 06, 2021 12: 26pm Pulse Oximetry 96 % 95-100 October 06, 2021 1 2:26pm Blood Pressure Systolic 119 100-140 October 06, 2021 12:26pm Blood Pressure Diastolic 68 50-85 October 06, 2021 12:26pm
--- OUTSIDE RECORDS SUMMARY | 2022-12-16 22:58 | XMS_ITS | Continuity of Care Document ---
Author Name [facility] Address [address] [place] [address] Organization [facility] Address [address] [place] [address] Care Team Providers Care Cellophane Worker Name Role Phone Adriana Burk Primary Care [...] 100 MG ORAL TWICE A DAY 14 [facility] er 2019April 15, 2021 Disconti nued Albuterol [...] sheets for providers can be found at: fda.gov/media/12592 5/download Fact sheets for patients can be found at: fda.gov/media/91064 7/download Coronavirus 2019 PCR Interp September 27, [...] history, and epidemiological information. Performed on the [employer] Fusion instrument Microbiology Results Procedure Source Result [...] every 4 hrs as needed.... Try to crop picker your medications in the pharmacy as soon as you are able. I would contact your primary care provider's office at the [facility] as they do have people in the office that can help you with your Medicaid application. You can also get help from the [employer] on Aging. Once again, please consider [...] Date Discharge/Departure Date Attending Provider Departed Emergency [facility] Emergency Department April 15, 2021 8:50am April 15, 2021 10:48am Departed Referred [facility] September 27, 2020 4:53pm September 27, [...] 10:42am Blood Pressure Systolic 122 100-140 [facility]2020 10:42am Blood Pressure Diastolic 78 50-85 [facility] 2020 10:42am
--- OUTSIDE RECORDS SUMMARY | 2022-12-16 22:58 | XMS_ITS | Continuity of Care Document ---
Author Name [facility] Address [address] [place] [address] Organization [facility] Address [address] [place] [address] Care Team Providers Care Car Wash Attendant Name Role Phone Adriana Burk Primary Care Physician Adriana Burk Attending Physician Allergies, Adverse Reactions, Alerts Allergen [...] 100 MG ORAL TWICE [facility] April 15, 2021 Disconti [...] sheets for providers can be found at: fda.gov/media/42216 5/download Fact sheets for patients can be found at: fda.gov/media/31437 7/download Coronavirus 2019 PCR Interp September 27, [...] history, and epidemiological information. Performed on the [employer] Fusion instrument Microbiology Results Procedure Source Result [...] Date Discharge/Departure Date Attending Provider Departed Referred [facility] Pathology May 14, 2021 7:04pm May 14, 2021 7:05pm Adriana Burk Departed Emergency [facility] Emergency Department April 15, 2021 8:50am April 15, 2021 10:48am Departed Referred [facility] September 27, 2020 4:53pm September [...] 2021 10:42am Blood Pressure Systolic 122 100-140 [facility]2020 10:42am Blood Pressure Diastolic 78 50-85 Apr [facility]2020 10:42am
--- OUTSIDE RECORDS SUMMARY | 2022-12-16 22:58 | XMS_ITS | Continuity of Care Document ---
Author Name [facility] Address [address] [place] [address] Organization [facility] Address [address] [place] [address] Care Team Providers Care Artist Model Name Role Phone Adriana Burk Primary Care Physician [phone] Allergies, Adverse Reactions, Alerts Allergen Type Severity [...] 100 MG [facility] 2021 Disconti nued Albuterol Sulfate 2.5 MG INHALAT ION EVERY 4 to 6 HOURS PRN For short ness of breat h or wheez ing [facility] 2019[facility], 2021 Disconti nued Prednisone 40 MG ORAL DAILY 6 er 2019April 15, 2021 Disconti nued Problem List Active Problems Medical Problem Onset Date Status Influenza A Active COPD exacerbation Active Inactive/Resolved Problems Medical Problem Onset Date [...] Date Discharge/Departure Date Attending Provider Departed Emergency [facility] Emergency Department October 06, 2021 8:58am October 06, 2021 12:27pm Departed Referred [facility] Pathology May 14, 2021 7:04pm May 14, 2021 7:05pm Adriana Burk Departed Emergency [facility] Emergency Department April 15, 2021 [...]
--- OUTSIDE RECORDS SUMMARY | 2022-12-16 22:58 | XMS_ITS | Continuity of Care Document ---
Author Name [facility] Address [address] [place] [address] Organization [facility] Address [address] [place] [address] Care Team Providers Care Service Bar Cashier Name Role Phone Adriana Burk Primary Care [...] PRN For Short ness Of Breat h mb r 2018April 15, 2021 Disconti nued Prednisone 60 MG ORAL DAILY 15 5 Dece be 2018May 31, 2019 Disconti nued administer with [...] sheets for providers can be found at: fda.gov/media/14419 5/download Fact sheets for patients can be found at: fda.gov/media/25442 7/download Coronavirus 2019 PCR Interp September 27, [...] history, and epidemiological information. Performed on the [employer] Fusion instrument Microbiology Results Procedure Source Result [...] every 4 hrs as needed.... Try to waste picker your medications in the pharmacy as soon as you are able. I would contact your primary care provider's office at the [facility] as they do have people in the office that can help you with your Medicaid application. You can also get help from the [employer] on Aging. Once again, please consider [...] Date Discharge/Departure Date Attending Provider Departed Emergency [facility] Emergency Department April 15, 2021 8:50am April 15, 2021 10:48am Departed Referred [facility] September 27, 2020 4:53pm September 27, [...] Alcohol Use Yes April 15, 2021 9:18am makr coffey Smoking Status Current every day smoker April 15 9:18am substance use type does not use April 15, 2021 9:18 am Query Response Start Date Stop Date Smoking Status Current every day smoker Vital Signs Vital Reading Result Reference Range Collection Date/Time Weight 63.503 kg April 15 9:00am Pulse 94 BPM 60-100 April 15 10:42am Respiration 18 RPM -April 15 10:42am Pulse Oximetry 95 % 95-100 April 15, 2021 10:42am Blood Pressure Systolic 122 100-140 [facility] 2020 10:42am Blood Pressure Diastolic 78 50-85 [facility] 2020 10:42am
--- OUTSIDE RECORDS SUMMARY | 2022-12-16 22:58 | XMS_ITS | Continuity of Care Document ---
Author Name [facility] Address [address] [place] [address] Organization [facility] Address [address] [place] [address] Care Team Providers Care International Marketing Manager Name Role Phone Adriana Burk Primary Care [...] 100 MG ORAL TWICE A DAY 14 [facility] er 2019April 15, 2021 Disconti nued Albuterol [...] Prednisone 60 MG ORAL DAILY 15 5 Dece2018 Discontinue d administer with food or milk [...] Date Discharge/Departure Date Attending Provider Departed Emergency [facility] Emergency Department October 06, 2021 8:58am October 06, 2021 12:27pm Departed Referred [facility] Pathology May 14, 2021 7:04pm May 14, 2021 7:05pm Adriana Burk Departed Emergency [facility] Emergency Department April 15, 2021 8:50am [...]
--- OUTSIDE RECORDS SUMMARY | 2022-12-16 22:58 | XMS_ITS | Continuity of Care Document ---
Author Name [facility] Address [address] [place] [address] Organization [facility] Address [address] [place] [address] Care Team Providers Care Shingle Bolt Cutter Name Role Phone Adriana Burk Primary Care [...] 100 MG ORAL TWICE [facility] DAY [facility] 15, 2021 Disconti nued Albuterol Sulfate 2.5 MG INHALAT ION EVERY 4 to 6 HOURS PRN For short ness of breat h or wheez ing [facility] 2019April 15, 2021 Disconti nued [...] Date Discharge/Departure Date Attending Provider Departed Emergency [facility] Emergency Department October 06, 2021 8:58am October 06, 2021 12:27pm Departed Referred [facility] Pathology May 14, 2021 7:04pm May 14, 2021 7:05pm Adriana Burk Departed Emergency [facility] Emergency Department April 15, 2021 8:50am [...]
--- OUTSIDE RECORDS SUMMARY | 2022-12-16 22:58 | XMS_ITS | Continuity of Care Document ---
Author Name [facility] Address [address] [place] [address] Organization [facility] Address [address] [place] [address] Care Team Providers Care Sed Middle School Teacher Name Role Phone Out of Town, Provider Primary Care Physician Natali vailable Allergies, Adverse Reactions, Alerts Allergen Type Severity Reaction Last Updated Verified Status Penicillins Allergy May 26, 2019 Y Ac tive Medications Active Medications Medication Dose Units Route Sig Qty Days Start Date Status Instructions Atorvastatin 20 MG ORAL DAILY May Active Lisinopril 20 MG ORAL DAILY Decem 2018 Active Lansoprazole 15 MG ORAL DAILY May Active Albuterol Sulfate [Proair Hfa] 1 PUFF INHALATION EVERY 4 to 6 HOURS PRN For Shortness Of Breath May 26, 2019 Active Albuterol Sulfate 2.5 MG INHALATION Q4H PRN For bronchospasm 120 May 26, 2019 Active Ipratropium-A lbuterol 3 ML INHALATION FOUR TIMES DAILY 180 May 26, 2019 Active Prednisone 60 MG ORAL DAILY 15 5 Dece2018 Active administer with food or milk Doxycycline Hyclate 100 MG ORAL TWICE A DAY 14 May 26, 2019 Active Problem List Active Problems Medical Problem Onset Date Status COPD exacerbation Active Procedures Procedure Date Status Chest 2 vw May 26, 2019 active Relevant Diagnostic Tests and/or Laboratory Data No known relevant diagnostic tests, laboratory data, and/or discharge summary. Advance Directives Advance Directive Response Recorded Date/ Time Do we have a copy on file here at [facility]? No May 26, 2019 8:47pm Does patient have an Advanced Directive? No May 26, 2019 8:47pm Pt has a Living Will? No May [id number] 8:47pm Pt has a Power of Scrum Product Owner? No Dece 2018 8:47pm Chief Complaint and Reason for Visit Encounter Admit Date Chief Complaint Reason for V isit Departed Emergency May 26, 2019 8:24pm SOB Hospital Discharge Instructions No known hospital discharge instructions. Hospital Discharge Medications Medication Dose Units Route Sig Qty Days Order Date Status Instructions Atorvastatin 20 MG ORAL DAILY May Active Lisinopril 20 MG ORAL DAILY Dece2018 Active Lansoprazole 15 MG ORAL DAILY May Active Albuterol Sulfate 1 PUFF INHALATION EVERY 4 to 6 HOURS PRN For Shortness Of Breath May 26, 2019 Active Albuterol Sulfate 2.5 MG INHALATION Q4H PRN For bronchospasm 120 May 26, 2019 Active Ipratropium-A lbuterol 3 ML INHALATION FOUR TIMES DAILY 180 May 26, 2019 Active Prednisone 60 MG ORAL DAILY 15 5 2018 Active administer with food or milk Doxycycline Hyclate 100 MG ORAL TWICE A DAY 14 May 26, 2019 Active Encounters Encounter Facility Location Admit/Visit Date Discharge/Departure Date Attending Provider Departed Emergency [facility] Emergency Department May 26, 2019 8:24pm May 26, 2019 10:03pm Functional Status Query Response Date Recorded Comment Comprehension Ability Understands Concepts May 8:48pm Query Response Date Recorded Comment Living Situation Home With Family May 26, 2019 10:02pm Immunizations No known immunizations. Payers Payer Name Policy Type Covered Libertarian Covered Libertarian Id Relationship Subscriber Subscriber Id SELF PAY Personal Plan of Care Instructions Exacerbation of COPD (DC) Social History Query Response Date Recorded Comment Smoking Status Current every day smoker May 26 8:40pm Query Response Start Date Stop Date Smoking Status Current every day smoker Vital Signs Vital Reading Result Reference Range Collection Date/Time Height n/a Weight 71.214 kg May 26 8:30pm Temperature 98.3 F 97.6 F-99.6 F May 26 8:30pm Pulse 86 BPM 60-100 May 26 10:02pm Respiration 16 RPM -May 26 10:02pm Pulse Oximetry 95 % 95-100 May 26, 2019 10:02pm Blood Pressure Systolic 141 100-140 Dece 2018 10:02pm Blood Pressure Diastolic 71 50-85 May 10:02pm Body Mass Index n/a
--- OUTSIDE RECORDS SUMMARY | 2022-12-16 22:58 | XMS_ITS | Continuity of Care Document ---
Author Name [facility] Address [address] [place] [address] Organization [facility] Address [address] [place] [address] Care Team Providers Care Delinquent Notice Machine Operator Name Role Phone Out of Town, Provider [...] DAY 14 Decembe r 2018February 01, 2020 Discpeytoni tim Problem List Active Problems Medical Problem Onset Date Status Acute exacerbation of chronic obstructive pulmon giorgi disease Active Inactive/Resolved Problems Medical Problem Onset Date Status COPD exacerbation Inactive Procedures Procedure Date Status Chest 2 vw May 26, 2019 completed INTERFACE ELECTROCARDIOGRAM May 26, 2019 co mpleted Relevant Diagnostic Tests and/or Laboratory Data No known relevant diagnostic tests, laboratory data, and/or discharge summary. Advance Directives Advance Directive Response Recorded Date/ Time Do we [place] [facility] May 26, 2019 8:47pm Does patient have an Advanced Directive? No May 26, 2019 8:47pm Pt has a Living Will? No May 032018 8:47pm Pt has a Power of Tubing Mill Operator? No Dece 2018 8:47pm Hospital Discharge Instructions Additional Discharge Instructions Your s ymptoms are consistent with an exacerbation of your COPD Take steroid and antibiotic as prescribed I have sent you a refill of your nebulizer solution and your albuterol inhaler, use one OR the other every 4-6 hours as needed for wheezing/shortness of breath If you have severe shortness of breath not improved with the nebulizer and you feel you cannot breathe go to the ER I have referred you for chinmay hoganid-19 testing, [facility] [place] will contact you to set up an appointment time Suggest contacting the [facility] Health Assistance Program to see if you qualify for cost reduction of your prescription medications call [phone] M-F 8:30-5 Instruction/Education Provided Chronic O bstructive Pulmonary Disease (COPD) (DC) Hospital Discharge Medications Medication Dose Units Route [...] 40 MG ORAL DAILY 6 Septe mb2019 Active Albuterol Sulfate 2 PUFF INHALATION Q6H PRN For shortnes s of breath or wheezing 8.5 February 01, 2020 Active Encounters Encounter Facility Location Admit/Visit Date Discharge/Departure Date Attending Provider Departed Emergency [facility] February 01, 2020 1:21pm February 01, 2020 2:16pm Departed Emergency [facility] Emergency Department May 26, 2019 8:24pm May 26, 2019 10:03pm Functional Status Query Response Date Recorded Comment Comprehension Ability Understands Concepts May 8:48pm Query Response Date Recorded Comment Living Situation With Family February 01, 2020 1:44pm Immunizations No known immunizations. Payers Payer Name Policy Type Covered Libertarian Covered Libertarian Id Relationship Subscriber Subscriber Id SELF PAY Personal Plan of Care Instructions Chronic Obstructive Pulmonar y Disease (COPD) (DC) Social History Query Response Date Recorded [...] 60-100 January 31 1:27pm Respiration 16 RPM 12-May 26 10:02pm Pulse Oximetry 96 % 95-100 February 01, 2020 1:27pm Blood Pressure Systolic 148 100-140 Sept 2019 1:27pm Blood Pressure Diastolic 66 50-85 Sep 2019 1:27pm
--- OUTSIDE RECORDS SUMMARY | 2022-12-16 22:59 | XMS_ITS | Continuity of Care Document ---
Author Name Unknown Address [address] [place] [address] [facility] Address [address] [place] [address] Phone Care Team Providers Care Two Way Radio Installer Name Role Phone PCP, of Choice Primary Care Provider Adriana Patton Attending Provider [phone] Adriana Burk Primary Care Provider Chief Complaint and Reason for Visit Chief Complaint SOB Allergies, Adverse Reactions, Alerts Allergen Type Severity Reaction Last Updated Verified Status Penicillins Allergy February 01, 2020 12:27pm Yes Active Social History Smoking Status Status Start Date End Date Date of Observa tion Smokes tobacco daily (finding) April 15, 2021 9:18am Observation Status Observation Response Date of Response Alcohol Use Yes April 15 9:18am substance use type does not use April 9:18am Smoking Status Current every day smoker Gomezbe r 2020 9:18am Additional Data Assigned Sex Female Problems Active Problems Medical Problem Onset Date Status Tobacco use disorder, continuous Active Acute exacerbation of chronic obstructive pulmon giorgi disease (COPD) Active Inactive/Resolved Problems Medical Problem Onset Date Status Acute exacerbation of chronic obstructive pulmon giorgi disease Resolved COPD exacerbation Resolved Medications Medication Status Dose Units Route Directions Qty Days St art Date End Date Instructions Atorvastatin Active 20 MG PO DAILY Dece mbe r 2018 8:39pm Lisinopril Active 20 MG PO DAILY [facility] 2018 8:39pm Lansoprazole Active 15 MG PO DAILY [facility] 2018 8:39pm Albuterol Sulfate (Proair Hfa) 90 mcg/actuation Hfa Aerosol Inhaler Discontin ued 1 PUFF INH EVERY 4 to 6 HOURS [facility] 2018 8:39pm [facility] 2020 9:07am Albuterol Sulfate Active 2.5 MG INH Q4H 120 [facility] 2018 8:55pm Ipratropium-A lbuterol Active 3 ML INH FOUR TIMES DAILY 180 [facility] 2018 8:55pm Prednisone Discontin ued 60 MG PO DAILY 15 5 [facility] 2018 8:55pm [facility] 2018 12:09a m administer with food or milk Doxycycline Hyclate Discontin ued 100 MG PO TWICE A DAY 14 [facility] 2018 9:55pm [facility] Doxycycline Hyclate Discontin ued 100 MG PO TWICE A DAY 14 [facility] 2019 1:10pm [facility] 2020 9:05am Albuterol Sulfate Discontin ued 2.5 MG INH EVERY 4 to 6 HOURS 75 [facility] 2019 1:10pm [facility] 2020 9:07am Prednisone Discontin ued 40 MG PO DAILY [facility] 1:10pm [facility] 2020 9:05am Albuterol Sulfate (Proair Hfa) 90 mcg/actuation HFA aerosol inhaler Active 2 PUFF INH Q6H 8.5 [facility] 2019 1:10pm Procedures Procedure Date Performed Status Chest 2 vw April 15, 2021 9:08am compl eted Group A Streptococcus Screen (LAZ) September 27, 021 completed Relevant Diagnostic Tests and/or Laboratory Data Laboratory Results Test Date/Time Result Interpretation Reference Range Result Comment Performing Site Coronavirus 2019 PCR Interp September 27, 2020 12:10pm Negative Negative This test has not been FDA cleared or approved. This testhas been authorized by FDA under an EUA for use byauthorized laboratories. This test has been authorized onlyfor detection of nucleic acid from 2018-, not for anyother viruses or pathogens. This test is only authorizedfor the duration of the declaration that circumstancesexi st justifying the authorization of emergency use of invitro diagnostic tests for detection and/or diagnosis [id number] under section 564(b)(1) of Act, 21 U.S.C ?360bbb-3(b) (1), unless the authorization is terminated orrevoked sooner.Negative results do not preclude 2019-nCoV infection andshould not be used as the sole basis for treatment or otherpatient management decisions. Negative results must becombined with clinical observations, patient history, andepidemiologic al information.Perf ormed on the [employer] Fusion instrument [facility] Microbiology Results Procedure Source Result Collection Date/Time Result Date/Time Result Comment Performing Site Group A Streptococcus Screen (LAZ) Throat September 27, 2020 1:04pm September 30, 2020 8:09am [facility] [address] [place] [id number] Diagnostic Imaging Reports Report Dictated Date/Time Dictated By Status Radiology Report April 15, 2021 9:38am Delaney Cronin MD completed [facility] RADIOLOGY REPORT PATIENT NAME: SEYMOUR AGUIAR DATE OF : 1955 ATTENDING/ER PHYSICIAN: ER/ATTENDING PHYSICIAN: Marni Bradley NP PRIMARY CARE PHYS: Adriana Burk APRN ADMITTING PHYSICIAN: CONSULTING PHYSICIAN: PROCEDURE DATE: 04/15/21 REPORT STATUS: Signed DICTATING PHYSICIAN: Delaney Cronin MD REASON FOR EXAM: smoking asthmatic sob.. PROCEDURE INFORMATION: Exam: XR Chest Exam date and time: 04/15/2021 9:17 AM Age: 65 years old Clinical indication: Shortness of breath; Patient HX: Patient arrives stating that she is having an asthma attack, reports running out of her preventative and rescue meds due to money issues, patient is tearful. Fully vaccinated, waiting to schedule her pfizer booster. Denies sick contacts, denies n/v/d, fever. Reports chronic cough that is usually tight but states the last couple days she has coughed up clear sputum. ; Additional info: Smoking asthmatic SOB. . TECHNIQUE: Imaging protocol: XR of the chest. Views: 2 views. COMPARISON: CR Chest 2 vw 05/26/2019 9:20 PM FINDINGS: Lungs: Unremarkable. No consolidation. Pleural spaces: Unremarkable. No pleural effusion. No pneumothorax. Heart/Mediastinum: Unremarkable. No cardiomegaly. Bones/joints: Unremarkable. IMPRESSION: No acute findings. Electronically Signed By : Delaney Cronin MD dd: 04/15/2138 04/15/21937 Vital Signs Vital Reading Result Reference Range Collection Date/Time Weight 63.50 kg April 15, 2021 9:00am Heart Rate 94 /min 60-100 April 15, 2021 10:42am Respiratory rate 18 /min 12-24 April 152020 10:42am Oxygen saturation by Pulse oximetry 95 % 95-100 April 15, 2021 10:42am BP Systolic 122 mm[Hg] 100-140 April 15, 2021 10:42am BP Diastolic 78 mm[Hg] 50-85 April 15, 2021 10:42am Advance Directives Advance Directive Response Recorded Date/ Time Does patient have an Advanced Directive? No May 26, 2019 8:47pm Do we have a copy on file here at [facility]? No May 26, 2019 8:47pm Pt has a Living Will? No May 032018 8:47pm Do we have a copy on file here at [facility]? No May 26, 2019 8:47pm Pt has a Power of [place]? No 2018 8:47pm Do we have a copy on file here at [facility]? No May 26, 2019 8:47pm Insurance Providers Guarantor SEYMOUR AGUIAR Address [address] [place] [phone] Contact Info. Home Phone: Payer Policy Id Coverage Id Subscriber's Name Subscriber Id Effective Date Expiration Date SELF PAY Self N/A Encounters Encounter Location(s) Arrival/Admit Date Discharge/Depart Date Provider(s) Departed Referred [facility] September 27, 2020 3:53pm September 27, 2020 3:54pm JAGDEEP Burk Departed Emergency [facility] April 15, 2021 8:50am April 15, 2021 10:48am null Functional Status Observation Response Date Recorded Living Situation Home April 15, 2021 10:48am With Family April 15 10:48am Mental Status Observation Response Date Recorded Speech Appropriate April 15 9:10am Plan of Treatment Future Tests Future scheduled test information is unavailable Pending Tests Test Name Date ordered Influenza Type A (RT-PCR) April 15, 2021 9:13am Influenza Type B (RT-PCR) April 15, 2021 9:13am Respiratory Syncytial Virus (RT-PCR Yony valentin 2020 9:13am SARS-CoV-2 RNA (RT-PCR) April 15 9:13am Future Visits Future appointment information is unavailable Referrals to Other Providers Reason for Referral Referral Start Date Provider Provider Contact Information Provider Address JAGDEEP Adriana Burk Work Phone: [address] [address] Future Procedures Future procedure information is unavailable Future Medications Future medication information is unavailable Patient Instructions Chronic Obstructive Pulmonar y Disease (COPD) (DC) How to Use a Metered Dose Inhaler ED
--- OUTSIDE RECORDS SUMMARY | 2022-12-16 22:59 | XMS_ITS | Continuity of Care Document ---
Author Name Unknown Address [address] [place] [address] Phone [facility] Address [address] [place] [address] Phone Care Team Providers Care Pulp Mill Team Leader Name Role Phone Out of Town, Provider Primary Care Provider Unav ailTennille Bryan Attending Provider [phone] PCP, of Choice Primary Care Provider Adriana Patotn Attending Provider Allergies, Adverse Reactions, Alerts Allergen Type Severity Reaction Last Updated Verified Status Penicillins Allergy February 01, 2020 1:27pm Y es Active Medications Medication Status Dose Units Route Directions Qty Days St art Date End Date Instructions Atorvastatin Active 20 MG PO DAILY Dece [facility] r 2018 9:39pm Lisinopril Active 20 MG PO DAILY e 2018 9:39pm Lansoprazole Active 15 MG PO DAILY Dece r 2018 9:39pm Albuterol Sulfate (Proair Hfa) 90 mcg/actuation Hfa Aerosol Inhaler Active 1 PUFF INH EVERY 4 to 6 HOURS r 2018 9:39pm Albuterol Sulfate Active 2.5 MG INH Q4H 120 r 2018 9:55pm Ipratropium-A lbuterol Active 3 ML INH FOUR TIMES DAILY 180 r 2018 9:55pm Prednisone Discontin ued 60 MG PO DAILY 15 5 r 2018 9:55pm Dece er 2018 1:09am administer with food or milk Doxycycline Hyclate Discontin ued 100 MG PO TWICE A DAY 14 [facility] r 2018 10:55pm Septem elizabeth 2019 1:27pm Doxycycline Hyclate Active 100 MG PO TWICE A DAY [facility] 2:10[facility] Albuterol Sulfate Active 2.5 MG INH EVERY 4 to 6 HOURS 75 Septemb er 2019 2:10pm Prednisone Active 40 MG PO DAILY 6 b er 2019 2:10pm Albuterol Sulfate (Proair Hfa) 90 mcg/actuation HFA aerosol inhaler Active 2 PUFF INH Q6H [facility] 2:10pm Problems Inactive/Resolved Problems Medical Problem Onset Date Status Acute exacerbation of chronic obstructive pulmon giorgi disease Resolved COPD exacerbation Resolved Procedures Procedure Date Performed Status Group A Streptococcus Screen (LAZ) September 27 021 active Relevant Diagnostic Tests and/or Laboratory Data Laboratory Results Test Date/Time Result Interpretation Reference Range Result Comment Performing Site Coronavirus (COVID-19)(P CR) February 02, 2020 1:00pm Negative Negative 2019-novel Coronavirus (2019-nCoV) not detected by theqRT-PCR assay. Consider testing for other respiratoryviru ses or re-collecting for 2019-nCoV testing. Note:Optimum timing for peak viral levels during infectionscause d by 2019-nCoV have not been determined. Collection ofmultiple specimens from the same patient may be necessaryto detect the virus.Limitatio nsPositive results are indicative of active infection [id number] but do not rule out bacterial infection orco-infection with other viruses. The agent detected may notbe the definite cause of disease. In addition, detection ofviral RNA may not indicate the presence of infectious virusor that SARS-CoV-2 is the causative agent for clinicalsymptom s.Negative results do not preclude SARS-CoV-2 infection andshould not be used as the sole basis for patient managementdecis ions. Negative results must be combined with clinicalobserva tions, patient history, and epidemiological information. False negative results may also occur ifamplification inhibitors are present in the specimen or ifinadequate numbers of organisms are present in thespecimen. Optimum specimen types and timing for peak virallevels during infections caused by SARS-CoV-2 have not beenfully determined. Collection of multiple specimens (typesand time points) from the same patient may be necessary todetect the virus.The test was validated for use with upper respiratoryspec imens obtained via nasopharyngeal or oropharyngealsw abs in VTM, UTM, M4, M5, M6, saline, and MTM media. Theperformance of this test has not been established for otherspecimens. Specimens collected using other FDA recommendedSpec imen Collection Materials listed in the FDA COVID-19Diagn[employer] communication (August 26, 2019) areprocessed with the caveat that they were not all validatedfor use with this test and the result must be interpretedin this context. Furthermore, a false negative results mayoccur if a specimen is improperly collected, transported orhandled.If the virus mutates in the RT-PCR target region,SARS-CoV -2 may not be detected or may be detected lesspredictably .Inhibitors or other types of interference may produce afalse negative result. An interference study evaluating theeffect of common cold medications was not performed.This test is not FDA-cleared but its performancechar acteristics were established by our CLIA-certified, CAP-accredited, high complexity laboratory in accordancewith CLIA regulations, College of [employer] [employer] Pathologists(CA P) guidelines (Aug 19, 2019), and FDA guidance (2019).This test is only for use under the Food and DrugAdministrat ion's Emergency Use Authorization. [facility] Test Performing Site February 02, 2020 1:00pm [facility] COVID Source: NPPlease indicate the Triage [id number] performed or referred byThe [address] Advance Directives Advance Directive Response Recorded Date/ Time Does patient have an Advanced Directive? No May 26, 2019 9:47pm Do we have a copy on file here at [facility]? No May 26, 2019 9:47pm Pt has a Living Will? No May 032018 9:47pm Do we have a copy on file here at [facility]? No May 26, 2019 9:47pm Pt has a Power of Laborer Cutting Tool? No Yina valentin 2018 9:47pm Do we have a copy on file here at [facility]? No May 26, 2019 9:47pm Chief Complaint and Reason for Visit Chief Complaint COVID SWAB Encounters Encounter Location(s) Arrival/Admit Date Discharge/Depart Date Provider(s) Departed Emergency [facility] valverde Urgent [facility] February 01, 2020 1:21pm February 01, 2020 2:16pm null [facility] February 02, 2020 8:49am February 02, 2020 8:50am Tennille Armendariz MD Departed Referred [facility] September 27, 2020 4:53pm September 27, 2020 4:54pm Adriana Burk CHAR FILTER TANK TENDER HEAD Assessments No Assessments Information Available Functional Status Observation Response Date Recorded Living Situation With Family February 01, 2020 1:44pm Goals Goals may be documented in an alternate section. Mental Status No Mental Status Information Available Medical Equipment No Medical Equipment Information available Insurance Providers Guarantor SEYMOUR AGUIAR Address [address] [place] [phone] Contact Info. Home Phone: Payer Policy Id Coverage Id Subscriber's Name Subscriber Id Effective Date Expiration Date SELF PAY Self N/A Plan of Treatment Future Tests Future scheduled test information is unavailable Pending Tests Pending diagnostic test information is unavailable Future Visits Future appointment information is unavailable Referrals to Other Providers Reason for Referral Referral Start Date Provider Magdalene cooper Contact Information Provider Address Town Out Future Procedures Future procedure information is unavailable Future Medications Future medication information is unavailable Patient Instructions Chronic Obstructive Pulmonar y Disease (COPD) (DC) Social History Smoking Status Status Date of Observation Smokes tobacco daily (finding) February 01, 2020 1:44pm Observation Status Observation Response Date of Response Alcohol Use Yes January 31 1:44pm substance use type does not use January 1:44pm Smoking Status Current every day smoker Septemb 2019 1:44pm Assigned Sex Female Vital Signs Vital Reading Result Reference Range Collection Date/Time Weight 63.50 kg February 01, 2020 1:27pm Body Temperature 98.0 [degF] 97.6-99.6 January 312019 1:27pm Heart Rate 83 /min 60-100 February 01, 2020 1:27pm Oxygen saturation by Pulse oximetry 96 % 95-100 February 01, 2020 1:27pm BP Systolic 148 mm[Hg] 100-140 February 01, 2020 1:27pm BP Diastolic 66 mm[Hg] 50-85 February 01, 2020 1:27pm Hospital Discharge Instructions
--- OUTSIDE RECORDS SUMMARY | 2022-12-16 22:59 | XMS_ITS | Continuity of Care Document ---
Author Name Unknown Address [address] [place] [address] Phone [facility] Address [address] [place] [address] Phone Care Team Providers Care Weight Loss Physician Name Role Phone Out of Town, Provider Primary Care Provider Unav ailTennille Bryan Attending Provider PCP, of Choice Primary Care Provider Adriana Patton Attending Provider Allergies, Adverse Reactions, Alerts Allergen Type Severity Reaction Last Updated Verified Status Penicillins Allergy February 01, 2020 1:27pm Y es Active Medications Medication Status Dose Units Route Directions Qty Days St art Date End Date Instructions Atorvastatin Active 20 MG PO DAILY Dece [facility] r 2018 9:39pm Lisinopril Active 20 MG PO DAILY 2018 9:39pm Lansoprazole Active 15 MG PO [...] 100 MG PO TWICE A DAY 14 [facility] r 2018 10:55pm Septem elizabeth 2019 1:27pm Doxycycline Hyclate Active 100 MG PO TWICE A DAY [facility] 2:10[facility] Albuterol Sulfate Active 2.5 MG INH EVERY 4 to 6 HOURS 75 Septemb er 2019 2:10pm Prednisone Active 40 MG PO DAILY 6 b er 2019 2:10pm Albuterol Sulfate (Proair Hfa) 90 mcg/actuation HFA aerosol inhaler Active 2 PUFF INH Q6H [facility] 2:10pm Problems Inactive/Resolved Problems Medical [...] nsPositive results are indicative of active infection [id number] but do not rule out bacterial infection [...] laboratory in accordancewith CLIA regulations, College of [employer] Pathologists(CA P) guidelines (Aug 19, 2019), and FDA guidance (2019).This test is only for use under the Food and DrugAdministrat ion's Emergency Use Authorization. [facility] [employer] Reference Lab Test Performing Site February 02, 2020 1:00pm [facility] COVID Source: NPPlease indicate the Triage [id number] performed or referred byThe [address] Advance Directives Advance Directive Response Recorded Date/ Time Does patient have an Advanced Directive? No May 26, 2019 9:47pm Do we have a copy on file here at [facility] No May 26, 2019 9:47pm Pt has a Living Will? No May 032018 9:47pm Do we have a copy on file here at [facility]? No May 26, 2019 9:47pm Pt has a Power of Room Attendant? No Yina valentin 2018 9:47pm Do we have a copy on file here at [facility]? No May 26, 2019 9:47pm Chief Complaint and Reason for Visit Chief Complaint COVID SWAB Encounters Encounter Location(s) Arrival/Admit Date Discharge/Depart Date Provider(s) Departed Emergency [facility] Urgent [facility] February 01, 2020 1:21pm February 01, 2020 2:16pm null [facility] February 02, 2020 8:49am February 02, 2020 8:50am Tennille Armendariz MD Departed Referred [facility] September 27, 2020 4:53pm September 27, 2020 4:54pm Adriana Burk FLOUR TESTER Assessments No Assessments Information Available Functional Status Observation Response Date Recorded Living Situation With Family February 01, 2020 1:44pm Goals Goals may be documented in an alternate section. Mental Status No Mental Status Information Available Medical Equipment No Medical Equipment Information available Insurance Providers Guarantor SEYMOUR AGUIAR Address [address] [place] [phone] Contact Info. Home Phone: Payer Policy Id [...]
--- OUTSIDE RECORDS SUMMARY | 2022-12-16 22:59 | XMS_ITS | Continuity of Care Document ---
Author Name Unknown Address [address] [place] [address] Phone [facility] Address [address] [place] [address] Phone Care Team Providers Care Commercial Artist Name Role Phone Adriana Burk Primary Care Provider [phone] Adriana Burk Attending Provider Chief Complaint and Reason for Visit Chief Complaint SOB COUGH,SOB Allergies, Adverse Reactions, Alerts Allergen Type Severity Reaction Last Updated Verified Status Penicillins Allergy February 01, 2020 1:27pm Y es Active Social History Smoking Status Status Start Date End Date Date of Observa tion Smokes tobacco daily (finding) October 06, 2021 11:08am Observation Status Observation Response Date of Response Alcohol Use Yes October 06, 2021 11 :08am substance use type does not use October 06, 2021 11:08am Smoking Status Current every day smoker September 11:08am Additional Data Assigned Sex Female Problems Active Problems Medical Problem Onset Date Status Influenza A Active COPD exacerbation Active Inactive/Resolved Problems Medical Problem Onset Date Status Tobacco use disorder, continuous Resolved Acute exacerbation of chronic obstructive pulmon giorgi disease Resolved Acute exacerbation of chroni c obstructive pulmonary disease (COPD) Resolved COPD exacerbation Resolved Medications Medication Status Dose Units Route Directions Qty Days St art Date End Date Instructions Atorvastatin Active 20 MG PO DAILY Dece [facility] 2018 9:39pm Lisinopril Active [address] [facility] 2018 9:39pm Lansoprazole Active 15 MG PO DAILY Dece [facility] 2018 9:39pm Albuterol Sulfate (Proair Hfa) 90 mcg/actuation Hfa Aerosol Inhaler Discontin ued 1 PUFF INH EVERY 4 to 6 HOURS [facility] 2018 9:39pm [facility] 2020 10:07a m Albuterol Sulfate Active 2.5 MG INH Q4H 120 [facility] 2018 9:55pm Ipratropium-A lbuterol Active 3 ML INH FOUR TIMES DAILY 180 [facility] 2018 9:55pm Prednisone Discontin ued 60 MG PO DAILY 15 5 [facility] 2018 9:55pm [facility] 2018 1:09am administer with food or milk Doxycycline Hyclate Discontin ued 100 MG PO TWICE A DAY 14 [facility] 2018 10:55pm [facility] elizabeth 2019 1:27pm Doxycycline Hyclate Discontin ued 100 MG PO TWICE A DAY 14 [facility] 2019 2:10pm [facility] 2020 10:05a m Albuterol Sulfate Discontin ued 2.5 MG INH EVERY 4 to 6 HOURS 75 [facility] 2019 2:10pm [facility] 2020 10:07a m Prednisone Discontin ued 40 MG PO DAILY 6 [facility] 2019 2:10pm [facility] 2020 10:05a m Albuterol Sulfate (Proair Hfa) 90 mcg/actuation HFA aerosol inhaler Active 2 PUFF INH Q6H 8.5 [facility] 2019 2:10pm Prednisone Active 60 MG PO DAILY 15 October 06, 2021 12:11pm Oseltamivir (Tamiflu) 75 mg capsule Active 75 MG PO TWICE A DAY 10 October 06, 2021 12:11pm Procedures Procedure Date Performed Status EKG October 06, 2021 9:54am active Chest 1 vw October 06, 2021 9:54am completed Chest 2 vw April 15, 2021 10:08am comp leted Relevant Diagnostic Tests and/or Laboratory Data Laboratory Results Test Date/Time Result Interpretation Reference Range Result Comment Performing Site White Blood Count October 06, 2021 10:21am 6.71 1000/mm3 4.8-10.[address] [address] Red Blood Count October 06, 2021 10:21am 4.08 M/mm3 4.20-5.[address] [address] Hemoglobin October 06, 2021 10:21am 12.8 g/dL 12.0-16.[address] [address] Hematocrit October 06, 2021 10:21am 38.5 % 37-47 [place] [address] Mean Corpuscular Volume October 06, 2021 10:21am 94.4 fL 81.0-99.[address] [address] Mean Corpuscular Hemoglobin October 06, 2021 10:21am 31.4 pg 27-[address] [address] Mean Corpuscular Hemoglobin Concent October 06, 2021 10:21am 33.2 g/dL 33-[address] [address] Red Cell Distribution Width October 06, 2021 10:21am 12.6 % 11.5-14.[address] [address] Platelet Count October 06, 2021 10:21am 219 1000/mm3 140-[address] [address] Mean Platelet Volume October 06, 2021 10:21am 10.4 fL 7.4-10.[address] [address] Neutrophils (%) (Auto) October 06, 2021 10:21am 75.5 % 40.0-72.[address] [address] Lymphocytes (%) (Auto) October 06, 2021 10:21am 16.1 % 17-45 [facility] [address] [address] Monocytes (%) (Auto) October 06, 2021 10:21am 7.7 % 3-[address] [address] Eosinophils (%) (Auto) October 06, 2021 10:21am 0.0 % 0-[address] [address] Basophils (%) (Auto) October 06, 2021 10:21am 0.3 % 0-1 [place] [address] Immature Granulocyte % (Auto) October 06, 2021 10:21am 0.4 % 0-1 [place] [address] Neutrophils # (Auto) October 06, 2021 10:21am 5.06 1000/mm3 1.4-6.[address] [address] Lymphocytes # (Auto) October 06, 2021 10:21am 1.08 1000/mm3 1.2-3.[address] [address] Monocytes # (Auto) October 06, 2021 10:21am 0.52 1000/mm3 0.0-0.[address] [address] Eosinophils # (Auto) October 06, 2021 10:21am 0.00 1000/mm3 0.0-0.[address] [address] Basophils # (Auto) October 06, 2021 10:21am 0.02 1000/mm3 0.0-0.[address] [address] Absolute Immature Granulocyte (auto October 06, 2021 10:21am 0.0 0-1 [place] [address]228 Differential Method October 06, 2021 10:21am Automated [place] [address] Sodium Level October 06, 2021 10:21am 133 mmol/L 137-145 [facility] [address] [address] Potassium Level October 06, 2021 10:21am 4.3 mmol/L 3.6-5.0 [facility] [address] [address] Chloride Level October 06, 2021 10:21am 98 mmol/L 98-107 [facility] [address] [address] Carbon Dioxide Level October 06, 2021 10:21am 23 mmol/L 22-30 [facility] [place] [address] Anion Gap October 06, 2021 10:21am 12 7-16 [facility] [place] [address] Blood Urea Nitrogen October 06, 2021 10:21am 10 mg/dL 7-17 [facility] [address] [address] Creatinine October 06, 2021 10:21am 0.55 mg/dL 0.52-1.04 [facility] [address] [address] Glomerular Filtration Rate Calc October 06, 2021 10:21am > 60 mL/min >60.0 [facility] [address] [address] Glucose Level October 06, 2021 10:21am 293 mg/dL 70-100 [facility] [address] [address] Calcium Level October 06, 2021 10:21am 9.2 mg/dL 8.4-10.2 [facility] [address] [address] Calcium Adjusted for Albumin October 06, 2021 10:21am 9.3 mg/dL 8.4-10.2 [facility] [address] [address] Total Bilirubin October 06, 2021 10:21am 0.6 mg/dL 0.2-1.3 [facility] [address] [address] Aspartate Amino Transf (AST/SGOT) October 06, 2021 10:21am 36 U/L 14-36 [facility] [address] [address] Alanine Aminotransferas e (ALT/SGPT) October 06, 2021 10:21am 25 U/L <35 As of 10/01/19, the Reference Range for ALT/SGPT for adult patients has been updated. The Reference Range for ALT/SGPT has not been established for patients <18 years of age. MAIN [facility] [address] [address] Total Protein October 06, 2021 10:21am 7.4 g/dL 6.3-8.2 [facility] [place] [address] Albumin October 06, 2021 10:21am 4.2 g/dL 3.5-5.0 [facility] [place] [address] Alkaline Phosphatase October 06, 2021 10:21am 103 U/L 38-126 [facility] [address] [address] Influenza Type A (RT-PCR) April 15, 2021 10:13am Not detected Negative [facility] [address] [address] Influenza Type A (RT-PCR) October 06, 2021 10:12am Positive Negative [facility] [address] [address] Influenza Type B (RT-PCR) April 15, 2021 10:13am Not detected Negative [facility] [address] [address] Influenza Type B (RT-PCR) October 06, 2021 10:12am Negative Negative [facility] [address] [address] Respiratory Syncytial Virus (RT-PCR April 15, 2021 10:13am Not detected Negative [facility] [address] [address] Respiratory Syncytial Virus (RT-PCR October 06, 2021 10:12am Negative Negative [facility] [address] [address] SARS-CoV-2 RNA (RT-PCR) April 15, 2021 10:13am Negative Negative Note: This RT-PCR assay is intended for the in vitro qualitative detection of nucleic acid from SARS-CoV-2.Thi s test has not been FDA cleared or approved. This test has been authorized by the FDA under an Emergency Use Authorization (EUA) for use by authorized laboratories. Fact sheets for providers can be found at: [facility].gov/[employer]/ 630751/downloa dFact sheets for patients can be found at: [employer].gov/[employer]/ 151793/downloa d MAIN LAB [place] [address] SARS-CoV-2 RNA (RT-PCR) October 06, 2021 10:12am Negative Negative Note: This RT-PCR assay is intended for the in vitro qualitative detection of nucleic acid from SARS-CoV-2.Thi s test has not been FDA cleared or approved. This test has been authorized by the FDA under an Emergency Use Authorization (EUA) for use by authorized laboratories. Fact sheets for providers can be found at: [facility].gov/[employer]/ 336681/downloa dFact sheets for patients can be found at: [facility].gov/[employer]/ 785679/downloa dNew reagent in use as of 04/19/2021. MAIN LAB [place] [address] Venous Blood pH October 06, 2021 10:21am 7.41 pH 7.31-7.41 [place] [address] Venous Blood pCO2 at Patient Temp October 06, 2021 10:21am 35 mmHg 41-51 [facility] [place] [address] Venous Blood HCO3 October 06, 2021 10:21am 22.4 mmol/L 23-30 [facility] [address] [address] Venous Blood Base Excess October 06, 2021 10:21am -2.0 mmol/L -2.0-2.0 [place] [address] Diagnostic Imaging Reports Report Dictated Date/Time Dictated By Status Radiology Report April 15, 2021 9:38am Delaney Cronin MD completed [facility] RADIOLOGY REPORT PATIENT NAME: SEYMOUR AGUIAR DATE [...] Signed By : Delaney Cronin MD dd: 04/15/[id number]/[id number] Report Dictated Date/Time Dictated By Status Radiology Report October 06, 2021 10:54am Jamie Wood DO completed [facility] RADIOLOG[facility] REPORT PATIENT NAME: SEYMOUR AGUIAR DATE OF : 1955 ATTENDING/ER PHYSICIAN: ER/ATTENDING PHYSICIAN: Emeka Treadwell MD PRIMARY CARE PHYS: Adriana Burk APRN ADMITTING PHYSICIAN: CONSULTING PHYSICIAN: PROCEDURE DATE: 10/06/21 REPORT STATUS: Signed DICTATING PHYSICIAN: Jamie Wood DO REASON FOR EXAM: cough/sob PROCEDURE INFORMATION: Exam: XR Chest Exam date and time: 10/06/2021 10:35 AM Age: 66 years old Clinical indication: Cough and shortness of breath; Additional info: Cough/sob TECHNIQUE: Imaging protocol: XR of the chest. Views: 1 view. COMPARISON: CR Chest 2 vw 04/15/2021 9:17 AM FINDINGS: Lungs: Unremarkable. No consolidation. Pleural spaces: Unremarkable. No pleural effusion. No pneumothorax. Heart/Mediastinum: Unremarkable. No cardiomegaly. Bones/joints: Unremarkable. IMPRESSION: No acute findings. Electronically Signed By : Jamie Wood DO dd: 10/06/21 1054 10/06/21 1054 Vital Signs Vital Reading Result Reference Range Collection Date/Time Weight 63.50 kg April 15, 2021 10:00am Heart Rate 94 /min 60-100 April 15, 2021 11:42am Respiratory rate 18 /min 12-24 April 152020 11:42am Oxygen saturation by Pulse oximetry 95 % 95-100 April 15, 2021 11:42am BP Systolic 122 mm[Hg] 100-140 April 15, 2021 11:42am BP Diastolic 78 mm[Hg] 50-85 April 15, 2021 11:42am Weight 63.50 kg October 06, 2021 9 :08am Body Temperature 97.5 [degF] 97.6-99.6 October 06 9:08am Heart Rate 100 /min 60-100 October 06, 2021 1 2:26pm Respiratory rate 30 /min -October 06 12:26pm Oxygen saturation by Pulse oximetry 96 % 95-100 October 06, 2021 12:26p m BP Systolic 119 mm[Hg] 100-140 October 06, 2021 1 2:26pm BP Diastolic 68 mm[Hg] 50-85 October 06, 2021 1 2:26pm Advance Directives Advance Directive Response Recorded Date/ Time Does patient have an Advanced Directive? No May 26, 2019 9:47pm Do we have a copy on file here at [facility]? No May 26, 2019 9:47pm Pt has a Living Will? No May 032018 9:47pm Do we have a copy on file here at [facility]? No May 26, 2019 9:47pm Pt has a Power of Telephone Operators Supervisor? No 2018 9:47pm Do we have a copy on file here at [facility]? No May 26, 2019 9:47pm Insurance Providers Guarantor SEYMOUR AGUIAR Address [address] [place] [id number] Contact Info. Home Phone: Payer Policy Id Coverage Id Subscriber's Name Subscriber Id Effective Date Expiration Date SELF PAY Self N/A Encounters Encounter Location(s) Arrival/Admit Date Discharge/Depart Date Provider(s) Departed Emergency [facility]-Emergency Department April 15, 2021 9:50am April 15, 2021 11:48am null Departed Referred [facility]-Pathology May 14, 2021 8:04pm May 14, 2021 8:05pm JAGDEEP Burk Departed Emergency [facility]-Emergency Department October 06, 2021 8:58am October 06, 2021 12:27pm null Functional Status Observation Response Date Recorded Living Situation Home October 06, 2021 1 2:27pm With Family October 06, 2021 12 :27pm Mental Status Observation Response Date Recorded Speech Appropriate April 15 10:10am Plan of Treatment Future Tests Future scheduled test information is unavailable Pending Tests Pending diagnostic test information is unavailable Future Visits Future appointment information is unavailable Referrals to Other Providers Reason for Referral Referral Start Date Provider Provider Contact Information Provider Address STUDIO CONTROL OPERATORPatrizia Burk Work Phone: [address] [address] STUDIO CONTROL OPERATORPatrizia Burk Work Phone: [address] [address] Future Procedures Future procedure information is unavailable Future Medications Future medication information is unavailable Patient Instructions Chronic Obstructive Pulmonar y Disease (COPD) (DC) How to Use a Metered Dose Inhaler ED Chronic Obstructive Pulmonar y Disease (COPD) (DC) Flu, Adult (DC) Hospital Discharge Instructions
--- OUTSIDE RECORDS SUMMARY | 2022-12-16 22:59 | XMS_ITS | Continuity of Care Document ---
Author Name Unknown Address [address] [place] [id number] Phone Organization [facility] Address [address] [place] [address] Phone Care Team Providers Care Reservoir Engineering Manager Name Role Phone Out of Town, Provider Primary Care Provider Unav ailable Allergies, Adverse Reactions, Alerts Allergen Type Severity Reaction Last Updated Verified Status Penicillins Allergy May 26, 2019 Yes Active Medications Medication Status Dose Units Route Sig Qty Days Start Date End Date Instructions Atorvastatin Active 20 MG ORAL DAILY Dece [facility] 2018 8:39pm Lisinopril Active 20 MG ORAL DAILY [facility] 2018 8:39pm Lansoprazole Active 15 MG ORAL DAILY Dece [facility] 2018 8:39pm Albuterol Sulfate Active 1 PUFF EVERY 4 to 6 HOURS May 26, 2019 8:39pm Albuterol Sulfate Active 2.5 MG Q4H 120 May 26, 2019 8:55pm Ipratropium-Alb uterol Active 3 ML FOUR TIMES DAILY 180 May 26, 2019 8:55pm Prednisone Active 60 MG ORAL DAILY 15 5 [facility] 2018 8:55pm administer with food or milk Doxycycline Hyclate Active 100 MG ORAL TWICE A DAY 14 May 26, 2019 9:55pm Problems Active Problems Medical Problem Onset Date Status COPD exacerbation Active Procedures Procedure Date Performed Status Chest 2 vw May 26, 2019 active Relevant Diagnostic Tests and/or Laboratory Data Diagnostic Imaging Reports Report Dictated Date/Time Dictated By Status Electrocardiogram May 26, 2019 8:33pm Gilberto Solis MD completed EKG PATIENT NAME: SEYMOUR AGUIAR 79 DATE OF : 1955 ATTENDING PHYSICIAN: PRIMARY CARE PHYS: No Pcp DICTATING PHYSICIAN: Gilberto Solis MD REPORT STATUS: Signed Test Reason : Blood Pressure : / mmHG Vent. Rate : 100 BPM Atrial Rate : 100 BPM P-R Int : 118 ms QRS Dur : 084 ms QT Int : 348 ms P-R-T Axes : 077 071 062 degrees QTc Int : 448 ms Normal sinus rhythm Normal ECG No previous ECGs available Confirmed by Gilberto Solis ([id number]) on 05/26/2019 8:40:31 PM Referred By: Gilberto Solis Confirmed By:Gilberto Solis 05/26/192039 Advance Directives Advance Directive Response Recorded Date/ Time Does patient have an Advanced Directive? No May 26, 2019 8:47pm Do we have a copy on file here at [facility]? No May 26, 2019 8:47pm Pt has a Living Will? No May 032018 8:47pm Do we have a copy on file here at [facility]? No May 26, 2019 8:47pm Pt has a Power of Public Transit Bus Driver? No Dece 2018 8:47pm Do we have a copy on file here at [facility]? No May 26, 2019 8:47pm Chief Complaint and Reason for Visit Chief Complaint SOB Encounters Encounter Location(s) Arrival/Admit Date Discharge/Depart Date Provider(s) Departed Emergency [facility]-Emergency Department May 26, 2019 8:24pm May 26, 2019 10:03pm null Assessments No Assessments Information Available Functional Status Observation Response Date Recorded Living Situation Home May 26, 2019 10:02pm With Family May 26 10:02pm Goals Goals may be documented in an alternate section. Mental Status Observation Response Date Recorded Comprehension Ability Understands Concepts Decem 2018 8:48pm Medical Equipment No Medical Equipment Information available Insurance Providers Payer Policy Id Coverage Id Subscriber's Name [...] Future medication information is unavailable Patient Instructions Exacerbation of COPD (DC) Social History Smoking Status Status Date of Observation Smokes tobacco daily (finding) May 26, 2019 8:40pm Observation Status Observation Response Date of Response Smoking Status Current every day smoker Georgette barba 2018 8:40pm Assigned Sex Female Vital Signs Vital Reading Result Reference Range Collection Date/Time Weight 71.21 kg May 26, 2019 8:30pm Body Temperature 98.3 [degF] 97.6-99.6 May 262018 8:30pm Heart Rate 86 /min 60-100 May 26, 2019 10:02pm Respiratory rate 16 /min 12-24 May 262018 10:02pm Oxygen saturation by Pulse oximetry 95 % 95-100 May 26, 2019 10:02pm BP Systolic 141 mm[Hg] 100-140 May 26, 2019 10:02pm BP Diastolic 71 mm[Hg] 50-85 May 26, 2019 10:02pm
--- OUTSIDE RECORDS SUMMARY | 2022-12-16 22:59 | XMS_ITS | Continuity of Care Document ---
Author Name Unknown Address [address] [place] [address] Phone [facility] Address [address] [place] [address] Phone Care Team Providers Care Striker Out Name Role Phone PCP, of Choice Primary Care Provider Adriana Patton Attending Provider [phone] Adriana Burk Primary Care Provider [phone] Chief Complaint and Reason for Visit Chief [...] 8:39pm Lisinopril Active 20 MG PO DAILY [facility] 2018 8:39pm Lansoprazole Active 15 MG PO DAILY [facility] 2018 8:39pm Albuterol Sulfate (Proair Hfa) 90 mcg/actuation Hfa Aerosol Inhaler Discontin ued 1 PUFF INH EVERY 4 to [facility] 8:[facility] 2020 9:07am Albuterol Sulfate Active 2.5 MG INH Q4H 120 [facility] 2018 8:55pm Ipratropium-A lbuterol Active 3 ML INH FOUR TIMES DAILY 180 [facility] 2018 8:55pm Prednisone Discontin ued 60 MG PO DAILY 15 5 [facility] 2018 8:55pm [facility] 2018 12:09a m administer with food or milk Doxycycline Hyclate Discontin ued 100 MG PO TWICE A DAY 14 [facility] 2018 9:55pm [facility] 12:27p m Doxycycline Hyclate Discontin ued 100 MG PO TWICE A DAY 14 [facility] 2019 1:10pm [facility] 2020 9:05am Albuterol Sulfate Discontin ued 2.5 MG INH EVERY 4 to 6 HOURS 75 [facility] 2019 1:10pm [facility] 2020 9:07am Prednisone Discontin ued 40 MG PO DAILY [facility] 1:10[facility] 2020 9:05am Albuterol Sulfate (Proair Hfa) 90 mcg/actuation HFA aerosol inhaler Active 2 PUFF INH Q6H 8.5 [facility] 2019 1:10pm Procedures Procedure Date Performed [...] invitro diagnostic tests for detection and/or diagnosis [id number] under section 564(b)(1) of Act, 21 U.S.C ?360bbb-3(b) (1), unless the authorization is terminated orrevoked sooner.Negative results do not preclude 2019-nCoV infection andshould not be used as the sole basis for treatment or otherpatient management decisions. Negative results must becombined with clinical observations, patient history, andepidemiologic al information.Perf ormed on the That{img} Fusion instrument [facility] Microbiology Results Procedure Source Result Collection Date/Time Result Date/Time Result Comment Performing Site Group A Streptococcus Screen (LAZ) Throat September 27, 2020 1:04pm September 30, 2020 8:09am MAIN LAB [address] [place] [id number] Diagnostic Imaging Reports Report Dictated Date/Time Dictated By Status Radiology Report April 15, 2021 9:38am Delaney Cronin MD completed [facility] RADIOLOGY REPORT PATIENT NAME: SEYMOUR [...] have a copy on file here at [facility]? No May 26, 2019 8:47pm Pt has a Living Will? No May 032018 8:47pm Do we have a copy on file here at [facility]? No May 26, 2019 8:47pm Pt has a Power of Product Control And Logistics Analyst? No 2018 8:47pm Do we have a copy on file here at [facility]? No May 26, 2019 8:47pm Insurance Providers Guarantor SEYMOUR AGUIAR Address [address] [place] [address] Contact Info. Home Phone: Payer Policy Id Coverage Id Subscriber's Name Subscriber Id Effective Date Expiration Date SELF PAY Self N/A Encounters Encounter Location(s) Arrival/Admit Date Discharge/Depart Date Provider(s) Departed Referred -[facility] September 27, 2020 3:53pm September 27, 2020 3:54pm JAGDEEP Burk Departed Emergency -Emergency Department April 15, 2021 8:50am April 15, [...] Provider Address JAGDEEP Adriana Burk Work Phone: [address] [address] Future Procedures Future procedure information is unavailable Future Medications Future medication information is unavailable Patient Instructions Chronic Obstructive Pulmonar y Disease (COPD) (DC) How to Use a Metered Dose Inhaler ED
--- OUTSIDE RECORDS SUMMARY | 2022-12-16 22:59 | XMS_ITS | Continuity of Care Document ---
Author Name Unknown Address [address] [place] [address] [facility] Address [address] [place] [address] Phone Care Team Providers Care Associate Loan Officer Name Role Phone PCP, of Choice Primary Care Provider Adriana Patton Attending Provider [phone] Adriana Burk Primary Care Provider [phone] Chief Complaint and Reason for Visit Chief [...] 9:18am Smoking Status Current every day smoker Jaime r 2020 9:18am Additional Data Assigned Sex Female Problems Inactive/Resolved Problems Medical Problem Onset Date Status Tobacco use disorder, continuous Resolved Acute exacerbation of chronic obstructive pulmon giorgi disease Resolved Acute exacerbation of chroni c obstructive pulmonary disease (COPD) Resolved COPD exacerbation Resolved Medications Medication Status Dose Units Route Directions Qty Days St art Date End Date Instructions Atorvastatin Active 20 MG PO DAILY Yina barba 2018 8:39pm Lisinopril Active 20 MG PO DAILY [facility] 2018 8:39pm Lansoprazole Active 15 MG PO DAILY [facility] 2018 8:39pm Albuterol Sulfate (Proair Hfa) 90 mcg/actuation Hfa Aerosol Inhaler Discontin ued 1 PUFF INH EVERY [address] [facility] 2018 8:39pm [facility] 2020 9:07am Albuterol Sulfate Active 2.5 MG INH Q4H 120 [facility] 2018 8:55pm Ipratropium-A lbuterol Active 3 ML INH FOUR TIMES DAILY 180 [facility] 2018 8:55pm Prednisone Discontin ued 60 MG PO DAILY [address] [facility] 2018 8:55pm [facility] 2018 12:09a m administer with food or milk Doxycycline Hyclate Discontin ued 100 MG PO TWICE A DAY 14 [facility] 2018 9:55pm [facility] 2019 12:27p m Doxycycline Hyclate Discontin ued 100 MG PO TWICE A DAY 14 [facility] 2019 1:10pm [facility] 2020 9:05am Albuterol Sulfate Discontin ued 2.5 MG INH EVERY 4 to 6 HOURS 75 [facility] 2019 1:10pm [facility] 2020 9:07am Prednisone Discontin ued 40 MG PO DAILY 6 [facility] 2019 1:10pm [facility] 2020 9:05am Albuterol Sulfate (Proair Hfa) 90 mcg/actuation HFA aerosol inhaler Active 2 PUFF INH Q6H 8.5 [facility] 2019 1:10pm Procedures Procedure Date Performed Status Chest 2 vw April 15, 2021 9:08am compl eted Group A Streptococcus Screen (LAZ) September 27, 2 021 completed Relevant Diagnostic Tests and/or Laboratory Data Laboratory Results Test Date/Time Result Interpretation Reference Range Result Comment Performing Site Influenza Type A (RT-PCR) April 15, 2021 9:13am Not detected Negative MAIN LAB [address] [address] Influenza Type B (RT-PCR) April 15, 2021 9:13am Not detected Negative MAIN LAB [address] [address] Respiratory Syncytial Virus (RT-PCR April 15, 2021 9:13am Not detected Negative MAIN LAB [address] [address] SARS-CoV-2 RNA (RT-PCR) April 15, 2021 9:13am Negative Negative Note: This RT-PCR assay is intended for the in vitro qualitative detection of nucleic acid from SARS-CoV-2.This test has not been FDA cleared or approved. This test has been authorized by the FDA under an Emergency Use Authorization (EUA) for use by authorized laboratories. Fact sheets for providers can be found at: Geliyoo.gov/media/51 4071/downloadFac t sheets for patients can be found at: Geliyoo.myShavingClub.com/L99.com/89 8490/download [address] [address] Coronavirus 2019 PCR Interp September 27, 2020 12:10pm Negative Negative This test has not been FDA cleared or approved. This testhas been authorized by FDA under an EUA for use byauthorized laboratories. This test has been authorized onlyfor detection of nucleic acid from 2019-nCoV, not for anyother viruses or pathogens. This test is only authorizedfor the duration of the declaration that circumstancesexi st justifying the authorization of emergency use of invitro diagnostic tests for detection and/or diagnosis [id number] under section 564(b)(1) of Act, 21 U.S.C ?360bbb-3(b) (1), unless the authorization is terminated orrevoked sooner.Negative results do not preclude 2019-nCoV infection andshould not be used as the sole basis for treatment or otherpatient management decisions. Negative results must becombined with clinical observations, patient history, andepidemiologic al information.Perf ormed on the Blinkbuggyher Fusion instrument [facility] Microbiology Results Procedure Source Result Collection Date/Time Result Date/Time Result Comment Performing Site Group A Streptococcus Screen (LAZ) Throat September 27, 2020 1:04pm September 30, 2020 8:09am MAIN LAB [address] [place] [address] Diagnostic Imaging Reports Report Dictated Date/Time Dictated By Status Radiology Report April 15, 2021 9:38am Delaney Cronin MD completed [facility] RADIOLOGY REPORT PATIENT NAME: SEYMOUR AGUIAR [...] By : Delaney Cronin MD dd: 04/15/2193704/15/21937 Vital Signs Vital Reading Result Reference Range [...] have a copy on file here at [facility]? No May 26, 2019 8:47pm Pt has a Living Will? No May 032018 8:47pm Do we have a copy on file here at [facility]? No May 26, 2019 8:47pm Pt has a Power of Outbound Call Center Representative? No Dece 2018 8:47pm Do we have a copy on file here at [facility]? No May 26, 2019 8:47pm Insurance Providers Guarantor SEYMOUR AGUIAR Address [address] [place] [id number] Contact Info. Home Phone: Payer Policy Id Coverage Id Subscriber's Name Subscriber Id Effective Date Expiration Date SELF PAY Self N/A Encounters Encounter Location(s) Arrival/Admit Date Discharge/Depart Date Provider(s) Departed Referred [facility] September 27, 2020 3:53pm September 27, 2020 3:54pm JAGDEEP Burk Departed Emergency [facility]-Emergency Department April 15, 2021 8:50am April 15, 2021 10:48am null Departed Referred [facility]-Pathology May 14, 2021 7:04pm May 14, 2021 7:05pm JAGDEEP Burk Functional Status Observation Response Date Recorded Living [...] Provider Provider Contact Information Provider Address JAGDEEP Burk Work Phone: [address] [address] Future Procedures Future procedure information is unavailable Future Medications Future medication information is unavailable Patient Instructions Chronic Obstructive Pulmonar y Disease (COPD) (DC) How to Use a Metered Dose Inhaler ED
--- OUTSIDE RECORDS SUMMARY | 2022-12-16 22:59 | XMS_ITS | Continuity of Care Document ---
Author Name Unknown Address [address] [place] [address] Phone [facility] Address [address] [place] [address] Phone Care Team Providers Care Industrial Analyst Name Role Phone Out of Town, Provider Primary Care Provider Unav ailable Allergies, Adverse Reactions, Alerts Allergen Type Severity Reaction Last Updated Verified Status Penicillins Allergy February 01, 2020 1:27pm Y es Active Medications Medication Status Dose Units Route Sig Qty Days Start Date End Date Instructions Atorvastatin Active 20 MG PO DAILY Dece [facility] 2018 8:39pm Lisinopril Active 20 MG PO DAILY [facility] 2018 8:39pm Lansoprazole Active 15 MG PO DAILY De[facility] 2018 8:39pm Albuterol Sulfate (Proair Hfa) 90 mcg/actuation Hfa Aerosol Inhaler Active 1 PUFF INH EVERY 4 to 6 HOURS May 26, 2019 8:39pm Albuterol Sulfate Active 2.5 MG INH Q4H 120 May 26, 2019 8:55pm Ipratropium-A lbuterol Active 3 ML INH FOUR TIMES DAILY 180 May 26, 2019 8:55pm Prednisone Discontinu ed 60 MG PO DAILY 15 5 May 26, 2019 8:55pm May 31, 2019 12:09am administer with food or milk Doxycycline Hyclate Discontinu ed 100 MG PO TWICE A DAY 14 May 26, 2019 9:55pm [facility] 2019 1:27pm Doxycycline Hyclate Active 100 MG PO TWICE A DAY 14 February 01, 2020 2:10pm Albuterol Sulfate Active 2.5 MG INH EVERY 4 to 6 HOURS 75 February 01, 2020 2:10pm Prednisone Active 40 MG PO DAILY 6 2019 2:10pm Albuterol Sulfate (Proair Hfa) 90 mcg/actuation HFA aerosol inhaler Active 2 PUFF INH Q6H 8.5 February 01, 2020 2:10pm Problems Active Problems Medical Problem Onset Date Status Acute exacerbation of chronic obstructive pulmon giorgi disease Active Inactive/Resolved Problems Medical Problem Onset Date Status COPD exacerbation Resolved Procedures Procedure Date Performed Status INTERFACE ELECTROCARDIOGRAM May 26, 2019 8:36pm completed Chest 2 vw May 26, 2019 8:36pm compl eted Relevant Diagnostic Tests and/or Laboratory Data Diagnostic Imaging Reports Report Dictated Date/Time Dictated By Status Electrocardiogram May 26, 2019 8:33pm Gilberto Solis MD completed [facility] EKG PATIENT NAME: SEYMOUR AGUIAR 79 DATE [...] By: Gilberto Solis Confirmed By:Gilberto Solis 05/26/192039 Radiology Report May 27, 2019 7:31am Mary Lynn MD completed [facility] RADIOLOGY REPORT PATIENT NAME: SEYMOUR AGUIAR DATE OF : 1955 ATTENDING/ER PHYSICIAN: ER/ATTENDING PHYSICIAN: Gilberto Solis MD PRIMARY CARE PHYS: Out Town ADMITTING PHYSICIAN: CONSULTING PHYSICIAN: PROCEDURE DATE: 05/26/19 REPORT STATUS: Signed DICTATING PHYSICIAN: Mary Lynn MD REASON FOR EXAM: Dyspnea STUDY: Chest 2 vw with no comparison. FINDINGS: The cardiomediastinal silhouette is normal. There is no pneumonia, edema, pleural effusion or pneumothorax. Thoracic spondylosis is noted. CONCLUSION: No acute cardiopulmonary abnormalities. dd: 05/27/19730 <Electronically signed by Mary Lynn MD in OV> 05/27/19730 Advance Directives Advance Directive Response Recorded Date/ Time Does patient have an Advanced Directive? No May 26, 2019 8:47pm Do we have a copy on file here at [facility]? No May 26, 2019 8:47pm Pt has a Living Will? No May 032018 8:47pm Do we have a copy on file here at [facility]? No May 26, 2019 8:47pm Pt has a Power of Fur Storage Clerk? No 2018 8:47pm Do we have a copy on file here at [facility]? No May 26, 2019 8:47pm Chief Complaint and Reason for Visit Chief Complaint SOB Encounters Encounter Location(s) Arrival/Admit Date Discharge/Depart Date Provider(s) Departed Emergency [facility]-Emergency Department May 26, 2019 8:24pm May 26, 2019 10:03pm null Departed Emergency [facility]gent [facility] February 01, 2020 1:21pm February 01, 2020 2:16pm null Assessments No Assessments Information Available Functional Status Observation Response Date Recorded Living Situation With Family February 01, 2020 1:44pm Living Situation Home May 26, 2019 10:02pm With Family May 26 10:02pm Goals Goals may be documented in an alternate section. Mental Status Observation Response Date Recorded Comprehension Ability Understands Concepts Dece 2018 8:48pm Medical Equipment No Medical Equipment Information available Insurance Providers Guarantor SEYMOUR AGUIAR Address [address] [place] [id number] Contact Info. Home Phone: Payer Policy Id [...] cooper Contact Information Provider Address Town Out Town Out Future Procedures Future procedure information is unavailable Future Medications Future medication information is unavailable Patient Instructions Exacerbation of COPD (DC) Chronic Obstructive Pulmonar y Disease (COPD) (DC) Social History Smoking Status Status Date of Observation Smokes tobacco daily (finding) February 01, 2020 1:44pm Observation Status Observation Response Date of Response Alcohol Use Yes January 31 020 1:44pm substance use type does not use January 1:44pm Smoking Status Current every day smoker 2019 1:44pm Assigned Sex Female Vital Signs Vital Reading Result Reference Range Collection Date/Time Weight 71.21 kg May 26, 2019 8:30pm Body Temperature 98.3 [degF] 97.6-99.6 May 262018 8:30pm Heart Rate 86 /min 60-100 May 26, 2019 10:02pm Respiratory rate 16 /min 12-May 262018 10:02pm Oxygen saturation by Pulse oximetry 95 % 95-100 May 26, 2019 10:02pm BP Systolic 141 mm[Hg] 100-140 May 26, 2019 10:02pm BP Diastolic 71 mm[Hg] 50-85 May 26, 2019 10:02pm Weight 63.50 kg February 01, 2020 1:27pm Body Temperature 98.0 [degF] 97.6-99.6 January 312019 1:27pm Heart Rate 83 /min 60-100 February 01, 2020 1:27pm Oxygen saturation by Pulse oximetry 96 % 95-100 February 01, 2020 1:27pm BP Systolic 148 mm[Hg] 100-140 February 01, 2020 1:27pm BP Diastolic 66 mm[Hg] 50-85 February 01, 2020 1:27pm
--- OUTSIDE RECORDS SUMMARY | 2022-12-16 22:59 | XMS_ITS | Continuity of Care Document ---
Author Name Unknown Address [address] [place] [address] Phone [facility] Address [address] [place] [address] Phone Care Team Providers Care Special Equipment Technician Name Role Phone Adriana Burk Primary Care Provider [phone] Adriana Burk Attending Provider Chief Complaint and [...] Atorvastatin Active 20 MG PO DAILY Dece [facility] 2018 9:39pm Lisinopril Active 20 MG PO DAILY [facility] 2018 9:39pm Lansoprazole Active 15 MG PO DAILY Dece [facility] 2018 9:39pm Albuterol Sulfate (Proair Hfa) 90 mcg/actuation Hfa Aerosol Inhaler Discontin ued 1 PUFF INH EVERY 4 to 6 HOURS [facility] 2018 9:39pm [facility] er 2020 10:07a m Albuterol Sulfate Active 2.5 MG INH Q4H 120 [facility] 2018 9:55pm Ipratropium-A lbuterol Active 3 ML INH FOUR TIMES DAILY 180 [facility] 2018 9:55pm Prednisone Discontin ued 60 MG PO DAILY 15 5 [facility] 2018 9:55pm [facility] 2018 1:09am administer with food or milk Doxycycline Hyclate Discontin ued 100 MG PO TWICE A DAY 14 [facility] 2018 10:55pm [facility] elizabeth 2019 1:27pm Doxycycline Hyclate Discontin ued 100 MG PO TWICE A DAY 14 [facility] 2019 2:10pm [facility] er 2020 10:05a m Albuterol Sulfate Discontin ued 2.5 MG INH EVERY 4 to 6 HOURS 75 [facility] 2019 2:10pm [facility] er 2020 10:07a m Prednisone Discontin ued 40 MG PO DAILY 6 [facility] 2019 2:10pm [facility] er 2020 10:05a m Albuterol Sulfate (Proair Hfa) 90 mcg/actuation HFA aerosol inhaler Active 2 PUFF INH Q6H 8.5 [facility] 2019 2:10pm Prednisone Active 60 MG [...] October 06, 2021 10:21am 6.71 1000/mm3 4.8-10.[address] [address] Red Blood Count October 06, 2021 10:21am 4.08 M/mm3 4.20-5.[address] [address] Hemoglobin October 06, 2021 10:21am 12.8 g/dL 12.0-16.[address] [address] Hematocrit October 06, 2021 10:21am 38.5 % 37-47 [place] [address] Mean Corpuscular Volume October 06, 2021 10:21am 94.4 fL 81.0-99.[address] [address] Mean Corpuscular Hemoglobin October 06, 2021 10:21am 31.4 pg 27-[address] [address] Mean Corpuscular Hemoglobin Concent October 06, 2021 10:21am 33.2 g/dL 33-[address] [address] Red Cell Distribution Width October 06, 2021 10:21am 12.6 % 11.5-14.[address] [address] Platelet Count October 06, 2021 10:21am 219 1000/mm3 140-[address] [address] Mean Platelet Volume October 06, 2021 10:21am 10.4 fL 7.4-10.[address] [address] Neutrophils (%) (Auto) October 06, 2021 10:21am 75.5 % 40.0-72.[address] [address] Lymphocytes (%) (Auto) October 06, 2021 10:21am 16.1 % 17-45 MAIN LAB [address] [address] Monocytes (%) (Auto) October 06, 2021 10:21am 7.7 % 3-[address] [address] Eosinophils (%) (Auto) October 06, 2021 10:21am 0.0 % 0-[address] [address] Basophils (%) (Auto) October 06, 2021 10:21am 0.3 % 0-1 [place] [address] Immature Granulocyte % (Auto) October 06, 2021 10:21am 0.4 % 0-1 [place] [address] Neutrophils # (Auto) October 06, 2021 10:21am 5.06 1000/mm3 1.4-6.[address] [address] Lymphocytes # (Auto) October 06, 2021 10:21am 1.08 1000/mm3 1.2-3.[address] [address] Monocytes # (Auto) October 06, 2021 10:21am 0.52 1000/mm3 0.0-0.[address] [address] Eosinophils # (Auto) October 06, 2021 10:21am 0.00 1000/mm3 0.0-0.[address] [address] Basophils # (Auto) October 06, 2021 10:21am 0.02 1000/mm3 0.0-0.[address] [address] Absolute Immature Granulocyte (auto October 06, 2021 10:21am 0.0 0-1 [place] [address] Differential Method October 06, 2021 10:21am Automated [place] [address] Sodium Level October 06, 2021 10:21am 133 mmol/L 137-145 [facility] [address] [address] Potassium Level October 06, 2021 10:21am 4.3 mmol/L 3.6-5.0 [facility] [address] [address] Chloride Level October 06, 2021 10:21am 98 mmol/L 98-107 [facility] [address] [address] Carbon Dioxide Level October 06, 2021 10:21am 23 mmol/L 22-30 MAIN LAB [place] 0[address]388 Anion Gap October 06, 2021 10:21am 12 7-16 MAIN LAB [place] [address]388 Blood Urea Nitrogen October 06, 2021 10:21am 10 mg/dL 7-17 MA[facility] [address] [address] Creatinine October 06, 2021 10:21am 0.55 mg/dL 0.52-1.04 MA[facility] [address] [address] Glomerular Filtration Rate Calc October 06, 2021 10:21am > 60 mL/min >60.0 MA[facility] [address] [address] Glucose Level October 06, 2021 10:21am 293 mg/dL 70-100 [facility] [address] [address] Calcium Level October 06, 2021 10:21am 9.2 mg/dL 8.4-10.2 [facility] [address] [address] Calcium Adjusted for Albumin October 06, 2021 10:21am 9.3 mg/dL 8.4-10.2 [facility] [address] [address] Total Bilirubin October 06, 2021 10:21am 0.6 mg/dL 0.2-1.3 MA[facility] [address] [address] Aspartate Amino Transf (AST/SGOT) October 06, 2021 10:21am 36 U/L 14-36 MAIN LAB [address] [address] Alanine Aminotransferas e (ALT/SGPT) October 06, 2021 10:21am 25 U/L <35 As of 10/01/19, the Reference Range for ALT/SGPT for adult patients has been updated. The Reference Range for ALT/SGPT has not been established for patients <18 years of age. MAIN LAB [address] [address] Total Protein October 06, 2021 10:21am 7.4 g/dL 6.3-8.2 MAIN LAB [place] [address] Albumin October 06, 2021 10:21am 4.2 g/dL 3.5-5.0 MAIN LAB [place] 011388 Alkaline Phosphatase October 06, 2021 10:21am 103 U/L 38-126 [facility] [address] [address] Influenza Type A (RT-PCR) April 15, 2021 10:13am Not detected Negative MAIN LAB [address] [address] Influenza Type A (RT-PCR) October 06, 2021 10:12am Positive Negative MAIN LAB [address] [address] Influenza Type B (RT-PCR) April 15, 2021 10:13am Not detected Negative MAIN LAB [address] [address] Influenza Type B (RT-PCR) October 06, 2021 10:12am Negative Negative MAIN LAB [address] [address] Respiratory Syncytial Virus (RT-PCR April 15, 2021 10:13am Not detected Negative MAIN LAB [address] [address] Respiratory Syncytial Virus (RT-PCR October 06, 2021 10:12am Negative Negative MAIN LAB [address] [address] SARS-CoV-2 RNA (RT-PCR) April 15, 2021 10:13am Negative Negative Note: This RT-PCR assay is intended for the in vitro qualitative detection of nucleic acid from SARS-CoV-2.Thi s test has not been FDA cleared or approved. This test has been authorized by the FDA under an Emergency Use Authorization (EUA) for use by authorized laboratories. Fact sheets for providers can be found at: [facility].gov/[employer]/ 482673/downloa dFact sheets for patients can be found at: [employer].gov/[employer]/ 996423/downloa d MAIN LAB [place] [address] SARS-CoV-2 RNA (RT-PCR) October 06, 2021 10:12am Negative Negative Note: This RT-PCR assay is intended for the in vitro qualitative detection of nucleic acid from SARS-CoV-2.Thi s test has not been FDA cleared or approved. This test has been authorized by the FDA under an Emergency Use Authorization (EUA) for use by authorized laboratories. Fact sheets for providers can be found at: [facility].gov/[employer]/ 962243/downloa dFact sheets for patients can be found at: [facility].gov/[employer]/ 060323/downloa dNew reagent in use as of 04/19/2021. MAIN LAB [place] [address] Venous Blood pH October 06, 2021 10:21am 7.41 pH 7.31-7.41 [place] [address] Venous Blood pCO2 at Patient Temp October 06, 2021 10:21am 35 mmHg 41-51 MAIN LAB [place] 0[address]388 Venous Blood HCO3 October 06, 2021 10:21am 22.4 mmol/L 23-30 [facility] [address] [address] Venous Blood Base Excess October 06, 2021 10:21am -2.0 mmol/L -2.0-2.0 [place] [address] Diagnostic Imaging Reports Report Dictated Date/Time Dictated By Status Radiology Report April 15, 2021 9:38am Delaney Cronin MD completed [facility] RADIOLOGY REPORT PATIENT NAME: SEYMOUR [...] 06, 2021 10:54am Jamie Wood DO completed [facility] RADIOLOGY REPORT PATIENT NAME: SEYMOUR [...] have a copy on file here at [facility]? No May 26, 2019 9:47pm Pt has a Living Will? No May 032018 9:47pm Do we have a copy on file here at [facility]? No May 26, 2019 9:47pm Pt has a Power of Freezing Machine Operator? No 2018 9:47pm Do we have a copy on file here at [facility]? No May 26, 2019 9:47pm Insurance Providers Guarantor SEYMOUR AGUIAR Address [address] [place] [id number] Contact Info. Home Phone: Payer Policy Id Coverage Id Subscriber's Name Subscriber Id Effective Date Expiration Date SELF PAY Self N/A Encounters Encounter Location(s) Arrival/Admit Date Discharge/Depart Date Provider(s) Departed Emergency [facility]-Emergency Department April 15, 2021 9:50am April 15, 2021 11:48am null Departed Referred [facility]-Pathology May 14, 2021 8:04pm May 14, 2021 8:05pm JAGDEEP Burk Departed Emergency [facility]-Emergency Department October 06, 2021 8:58am October [...] Date Provider Provider Contact Information Provider Address CONTINUOUS WAVE OPERATORPatrizia Burk Work Phone: [address] [address] CONTINUOUS WAVE OPERATORPatrizia Burk Work Phone: [address] [address] Future Procedures Future procedure information is unavailable Future Medications Future medication information is unavailable Patient Instructions Chronic Obstructive Pulmonar y Disease (COPD) (DC) How to Use a Metered Dose Inhaler ED Chronic Obstructive Pulmonar y Disease (COPD) (DC) Flu, Adult (DC) Hospital Discharge Instructions
--- OUTSIDE RECORDS SUMMARY | 2022-12-16 22:59 | XMS_ITS | Continuity of Care Document ---
Author Name Unknown Address [address] [place] [address] Phone [facility] Address [address] [place] [address] Phone Care Team Providers Care [employer] Mill [employer] Lathe Operator Name Role Phone Out of Town, Provider Primary Care Provider Unav ailable Tennille Armendariz Attending Provider [phone] Allergies, Adverse Reactions, Alerts Allergen Type Severity Reaction Last Updated Verified Status Penicillins Allergy February 01, 2020 1:27pm Y es Active Medications Medication Status Dose Units Route Sig Qty Days Start Date End Date Instructions Atorvastatin Active 20 MG PO DAILY [facility] 2018 8:39pm Lisinopril Active 20 MG PO DAILY [facility] 2018 8:39pm Lansoprazole Active 15 MG PO DAILY [facility] 2018 8:39pm Albuterol Sulfate (Proair Hfa) 90 [...] Prednisone Active 40 MG PO DAILY 6 Septem 2019 2:10pm Albuterol Sulfate (Proair Hfa) 90 mcg/actuation HFA aerosol inhaler Active 2 PUFF INH Q6H 8.5 February 01, 2020 2:10pm Problems Inactive/Resolved Problems Medical Problem Onset [...] 26, 2019 8:33pm Gilberto Solis MD completed [facility] EKG PATIENT NAME: SEYMOUR AGUIAR 79 DATE [...] 27, 2019 7:31am Mary Lynn MD completed [facility] RADIOLOGY REPORT PATIENT NAME: SEYMOUR [...] have a copy on file here at [facility]? No May 26, 2019 8:47pm Pt has a Living Will? No May 032018 8:47pm Do we have a copy on file here at [facility]? No May 26, 2019 8:47pm Pt has a Power of Secondary School Teacher? No Dece 2018 8:47pm Do we have a copy on file here at [facility]? No May 26, 2019 8:47pm Chief Complaint and Reason for Visit Chief Complaint SOB COVID SWAB Encounters Encounter Location(s) Arrival/Admit Date Discharge/Depart Date Provider(s) Departed Emergency [facility] May 26, 2019 8:24pm May 26, 2019 10:03pm null Departed Emergency [facility] Urgent [facility] February 01, 2020 1:21pm February 01, 2020 2:16pm null Departed Clinical [facility] Department February 02, 2020 8:49am February 02, 2020 8:50am Tennille Armendariz MD Assessments No Assessments Information Available Functional Status Observation Response Date Recorded Living Situation With Family February 01, 2020 1:44pm Living Situation Home May 26, 2019 10:02pm With Family May 26 019 10:02pm Goals Goals may be documented in an alternate section. Mental Status Observation Response Date Recorded Comprehension Ability Understands Concepts Decem 2018 8:48pm Medical Equipment No Medical Equipment Information available Insurance Providers Guarantor SEYMOUR AGUIAR Address [address] [place] [id number] Contact Info. Home Phone: Payer Policy Id [...]
--- NOTE | 2022-12-16 23:11 | DI.VRAD_ITS ---
PROCEDURE INFORMATION: Exam: CT Head Without Contrast Exam date and time: 12/16/2022 10:35 PM Age: 67 years old Clinical indication: Other: Possible syncope, fall down 2-3 stairs, no hs TECHNIQUE: Imaging protocol: Computed tomography of the head without contrast. Radiation optimization: All CT scans at this facility use at least one of these dose optimization techniques: automated exposure control; mA and/or kV adjustment per patient size (includes targeted exams where dose is matched to clinical indication); or iterative reconstruction. COMPARISON: No relevant prior studies available. FINDINGS: Brain: Mild volume loss No hemorrhage. Unremarkable white matter. No mass effect. Cerebral ventricles: No ventriculomegaly. Paranasal sinuses: Visualized sinuses are unremarkable. No fluid levels. Mastoid air cells: Visualized mastoid air cells are well aerated. Bones/joints: Unremarkable. No acute fracture. Soft tissues: Unremarkable. IMPRESSION: No acute intracranial hemorrhage PROCEDURE INFORMATION: Exam: CT Cervical Spine Without Contrast Exam date and time: 12/16/2022 10:35 PM Age: 67 years old Clinical indication: Other: Possible syncope, fall down 2-3 stairs, no hs TECHNIQUE: Imaging protocol: Computed tomography of the cervical spine without contrast. Radiation optimization: All CT scans at this facility use at least one of these dose optimization techniques: automated exposure control; mA and/or kV adjustment per patient size (includes targeted exams where dose is matched to clinical indication); or iterative reconstruction. COMPARISON: CR XR CHEST 2V PA LATERAL 06/03/2018 10:34 AM FINDINGS: Bones/joints: No acute fracture. Loss of cervical lordosis is presumably on a degenerative basis.No significant disc bulge or herniation. No severe spinal canal stenosis. No significant neural foraminal narrowing. Lungs: 3 mm nodule in the right upper lobe. Emphysema noted Soft tissues: Unremarkable. IMPRESSION: No acute cervical fracture 3 mm right upper lobe nodule. Comparison with prior helpful. Otherwise, nonurgent chest CT recommended Dictated and Authenticated by: Lit Moeller MD. Ordering:AURORA Christianson MD
[2022-12-16 23:19] VITALS: BP 120/62; PULSE 91; RESP 14; O2SAT 96
--- NOTE | 2022-12-16 23:28 | DI.VRAD_ITS ---
PROCEDURE INFORMATION: Exam: CT Chest With Contrast; Diagnostic Exam date and time: 12/16/2022 10:44 PM Age: 67 years old Clinical indication: Other: SOB, right anterior chest ttp, fall down 3 steps TECHNIQUE: Imaging protocol: Diagnostic computed tomography of the chest with contrast. 3D rendering (Not supervised by radiologist): MIP and/or 3D reconstructed images were created by the technologist. Radiation optimization: All CT scans at this facility use at least one of these dose optimization techniques: automated exposure control; mA and/or kV adjustment per patient size (includes targeted exams where dose is matched to clinical indication); or iterative reconstruction. Contrast material: OMNI 350; Contrast volume: 100 ml; Contrast route: INTRAVENOUS (IV); COMPARISON: CR XR CHEST 2V PA LATERAL 06/03/2018 10:34 AM FINDINGS: Lungs: Unremarkable. No consolidation. No masses. Pleural spaces: Unremarkable. No pneumothorax. No pleural effusion. Heart: Unremarkable. No cardiomegaly. No pericardial effusion. Lymph nodes: Unremarkable. No enlarged lymph nodes. Vasculature: Unremarkable. No aortic aneurysm. Bones/joints: Unremarkable. No acute fracture. Soft tissues: Unremarkable. A small hiatal hernia is detected. IMPRESSION: No acute findings. PROCEDURE INFORMATION: Exam: CT Abdomen And Pelvis With Contrast Exam date and time: 12/16/2022 10:44 PM Age: 67 years old Clinical indication: Other: SOB, right anterior chest ttp, fall down 3 steps TECHNIQUE: Imaging protocol: Computed tomography of the abdomen and pelvis with contrast. 3D rendering (Not supervised by radiologist): MIP and/or 3D reconstructed images were created by the technologist. Radiation optimization: All CT scans at this facility use at least one of these dose optimization techniques: automated exposure control; mA and/or kV adjustment per patient size (includes targeted exams where dose is matched to clinical indication); or iterative reconstruction. Contrast material: OMNI 350; Contrast volume: 100 ml; Contrast route: INTRAVENOUS (IV); COMPARISON: CR XR CHEST 2V PA LATERAL 06/03/2018 10:34 AM FINDINGS: Liver: Hepatomegaly and diffuse fatty infiltrationNo mass. Gallbladder and bile ducts: Normal. No calcified stones. No ductal dilation. Pancreas: Normal. No ductal dilation. Spleen: Normal. No splenomegaly. Adrenal glands: Normal. No mass. Kidneys and ureters: Normal. No hydronephrosis. Stomach and bowel: Unremarkable. No obstruction. No mucosal thickening. Appendix: No evidence of appendicitis. Intraperitoneal space: Unremarkable. No free air. No significant fluid collection. Vasculature: Unremarkable. No abdominal aortic aneurysm. Lymph nodes: Unremarkable. No enlarged lymph nodes. Urinary bladder: Unremarkable as visualized. Reproductive: Unremarkable as visualized. Bones/joints: Unremarkable. No acute fracture. Soft tissues: Unremarkable. IMPRESSION: No acute findings. Dictated and Authenticated by: Lit Moeller MD. Ordering:AURORA Christianson MD
[2022-12-17] VITALS (7 sets, daily range): BP systolic 116–163; BP diastolic 64–84; PULSE 96–102; RESP 14–20; TEMP 37.2; O2SAT 94–100
[2022-12-17 01:18] LABS: ETHANOL BLOOD 130.5 mg/dL (<10)
--- NOTE | 2022-12-17 01:22 | ED.PROG_ITS ---
Date of service: 12/17/22 Time of Service: 04:44 Medical Decision Making 12:00 --care was signed out by Dr. Batista, please see her documentation regarding initial ED presentation and course. Plan at signout was to follow-up on CT of the chest abdomen pelvis and reassess patient for sobriety. -- Notified by nursing that patient was feeling reflux. She was given Pepcid 20 mg IV and Mylanta and was noted to improve. -- Nursing notified me that patient was feeling like she had a wheeze and requesting repeat neb treatment. This was ordered and patient was noted to improve. -- CT of the abdomen pelvis was interpreted by radiology, impression: No acute findings. CT of the chest was interpreted by radiology, impression: No acute findings. 4:45 -- Nursing notified me that patient was feeling like she had a wheeze and requesting repeat neb treatment. This was ordered and patient was noted to improve. Labs rechecked and alcohol level 130 at 1 AM. Plan for discharge this a.m. I will contact [facility]. -- repeat lipase wnl. ETOH <3. 7:20 -- Patient again noting wheeze. Will give duoneb and solumedrol 60mg IV. Patient now noting pain left lateral ankle with weight bearing. Tender to palpation lateral malleolus. Will xray. Lab Data Lab results reviewed: Yes I reviewed the patient's lab results. Labs: Laboratory Tests Range/Units 12/16/22 12/16/22 12/16/22 22:00 22:00 22:00 WBC (4.4-10.8) 10^3/uL 12.22 H RBC (3.93-5.22) 10^6/uL 4.25 Hgb (11.2-15.7) g/dL 13.1 Hct (36.0-46.0) % 38.9 MCV (80-95) fL 92 MCH (27.0-33.0) pg 30.8 MCHC (32.0-36.0) % 33.7 RDW (11.7-14.6) % 13.0 Plt Count (130-400) 10^3/uL 231 MPV (8.0-11.0) fL 9.5 Immature Gran % 1.1 Neutrophils % 68.9 Lymphocytes % 22.9 Monocytes % 5.2 Eosinophils % 1.6 Basophils % 0.3 Nucleated RBC % (0.0-0.3) % 0.0 Absolute Neutrophils (1.2-6.7) 10^3/uL 8.42 H Absolute Lymphocytes (1.2-3.4) 10^3/uL 2.80 Absolute Monocytes (0.1-0.8) 10^3/uL 0.64 Absolute Eosinophils (0.0-0.7) 10^3/uL 0.20 Absolute Basophils (0.0-0.2) 10^3/uL 0.04 Sodium (136-145) mmol/L 135 L Potassium (3.5-5.1) mmol/L 3.5 Chloride (98-107) mmol/L 100 Carbon Dioxide (21.0-32.0) mmol/L 22.5 Anion Gap (3-11) mmol/L 12.5 H BUN (7-18) mg/dL 10 Creatinine (0.55-1.02) mg/dL 0.8 Est GFR (CKD-EPI 2020) (mL/min/1.73m2) 81.21 Glucose (74-106) mg/dL 293 H Calcium (8.5-10.1) mg/dL 8.7 Magnesium (1.8-2.4) mg/dL 1.9 Total Bilirubin (0.2-1.0) mg/dL 0.3 AST (15-37) U/L 40 H ALT (14-59) U/L 37 Alkaline Phosphatase (46-116) U/L 111 Troponin I (<or=60) ng/L < 50 Total Protein (6.4-8.2) g/dL 7.9 Albumin (3.4-5.0) g/dL 3.6 Lipase (16-77) U/L 90 H Ethyl Alcohol (<10) mg/dL 229.3 H Range/Units 12/17/22 12/17/22 01:00 01:00 WBC (4.4-10.8) 10^3/uL RBC (3.93-5.22) 10^6/uL Hgb (11.2-15.7) g/dL Hct (36.0-46.0) % MCV (80-95) fL MCH (27.0-33.0) pg MCHC (32.0-36.0) % RDW (11.7-14.6) % Plt Count (130-400) 10^3/uL MPV (8.0-11.0) fL Immature Gran % Neutrophils % Lymphocytes % Monocytes % Eosinophils % Basophils % Nucleated RBC % (0.0-0.3) % Absolute Neutrophils (1.2-6.7) 10^3/uL Absolute Lymphocytes (1.2-3.4) 10^3/uL Absolute Monocytes (0.1-0.8) 10^3/uL Absolute Eosinophils (0.0-0.7) 10^3/uL Absolute Basophils (0.0-0.2) 10^3/uL Sodium (136-145) mmol/L Potassium (3.5-5.1) mmol/L Chloride (98-107) mmol/L Carbon Dioxide (21.0-32.0) mmol/L Anion Gap (3-11) mmol/L BUN (7-18) mg/dL Creatinine (0.55-1.02) mg/dL Est GFR (CKD-EPI 2020) (mL/min/1.73m2) Glucose (74-106) mg/dL Calcium (8.5-10.1) mg/dL Magnesium (1.8-2.4) mg/dL Total Bilirubin (0.2-1.0) mg/dL AST (15-37) U/L ALT (14-59) U/L Alkaline Phosphatase (46-116) U/L Troponin I (<or=60) ng/L < 50 Total Protein (6.4-8.2) g/dL Albumin (3.4-5.0) g/dL Lipase (16-77) U/L Ethyl Alcohol (<10) mg/dL 130.5 H Sign Out Sign Out Data: Sign Out Comment: Intoxicated, fall down 2-3 stairs. COPD, wheezing on arrival, improved after duoneb. Pending CT chest/abd/pelvis and sober re-eval Last updated by Meghan Batista MD at 12/16/22 23:29 Discharge Plan Disposition Patient Disposition: Home Condition: Stable Discharge Details Clinical Impression: Fall down stairs, COPD (chronic obstructive pulmonary disease), Alcohol intoxication, Elevated lipase Primary Care Provider: Morelia Mejia ED Provider: Jesús Thayer Home Meds and New Rx's Prescriptions: New prednisone 20 mg tablet 40 mg PO DAILY Qty: 8 0RF Rx Instructions: start 12/18/22 Continued pantoprazole 40 MG tablet,delayed release (DR/EC) 40 mg PO DAILY Patient Comments: DECIDE SHE DIDNT NEED IT AND COSTS TOO MUCH MONEY fexofenadine [Aller-ease] 180 MG tablet 180 mg PO DAILY Patient Comments: DECIDE SHE DIDNT NEED IT AND COSTS TOO MUCH MONEY lisinopril 20 MG tablet 20 mg PO DAILY Patient Comments: DECIDE SHE DIDNT NEED IT AND COSTS TOO MUCH MONEY oxycodone 5 MG tablet 5 mg PO Q4H PRN PRNQty: 14 0RF Patient Comments: DECIDE SHE DIDNT NEED IT AND COSTS TOO MUCH MONEY fluticasone propion-salmeterol [Advair Diskus] 1 EACH blister with device 1 ea Inhalation DAILY Qty: 14 0RF Patient Comments: DECIDE SHE DIDNT NEED IT AND COSTS TOO MUCH MONEY albuterol sulfate [Ventolin HFA] 200 PUFF HFA aerosol inhaler 2 puff Inhalation Q4H PRN PRN (Reason: shortness of breath or wheezing) Qty: 8 0RF Patient Comments: DECIDE SHE DIDNT NEED IT AND COSTS TOO MUCH MONEY Discharge Instructions Instructions: COPD (Chronic Obstructive Pulmonary Disease) (ED), Alcohol Intoxication (ED) Additional Instructions: Please stop abusing alcohol. Please take your medication as prescribed. Please discuss medications with your doctor. Please contact your primary care physician to arrange follow-up. Be sure to notify them of abnormal lipase (pancreas level). Return to the ER immediately for any worsening or new concerning symptoms. Referrals: [facility] [Outside] Morelia Mejia [Primary Care Provider] -
--- NOTE | 2022-12-17 01:22 | NUR.NOTE ---
Pt c/o epigastric burning pain. Reported to MD Jeovany. New ords received.
[2022-12-17 01:26] LABS: Troponin I < 50 ng/L (<or=60)
[2022-12-17] MEDS: Lactated Ringers 1,000 ML 1000 ML IV (01:34)
[2022-12-17] MEDS: Famotidine 20 MG/2 ML VIAL IVP (01:34)
[2022-12-17] MEDS: Mylanta Suspension 30 ML CUP PO (01:34)
[2022-12-17] MEDS: Albuterol/Ipratropium 3 ML UPD VIAL UPD (01:40)
[2022-12-17 05:54] LABS: Lipase 30 U/L (16-77)
[2022-12-17 06:13] LABS: ETHANOL BLOOD < 3.0 mg/dL (<10)
--- NOTE | 2022-12-17 07:15 | DI.RAD_ITS ---
Exam(s) XR ANKLE LT COMPLETE EXAM: XR ANKLE LT COMPLETE CLINICAL HISTORY: fall, pain lateral mal TECHNIQUE: 2D digital imaging was performed of the left ankle. Four images were obtained. AP, late ral and oblique views were obtained. COMPARISON: No exams were available for comparison FINDINGS: BONES: No acute fracture is present. No bony destructive lesion is seen. JOINTS:The ankle mortise is normally aligned. SOFT TISSUE: Normal. IMPRESSION: No acute fracture or dislocation. DATA REPOSITORY: RADIATION DOSE DELIVERED:
[2022-12-17] MEDS: Albuterol/Ipratropium 3 ML UPD VIAL (07:22)
[2022-12-17] MEDS: methylPREDNISolone SUCC 125 MG VIAL 60 MG IVP (08:03)
--- NOTE | 2022-12-23 17:53 | NUR.NOTE ---
Nursing Note: Accessed chart for [facility] billing purposes.
== END 2022-12-17 10:15 | disposition home or self-care (01) ==
PROVIDERS: Student in an Organized Health Care Education/Training Program; Emergency Provider Physician Assistant; PCP Nurse Practitioner
DX: J44.9 Chronic obstructive pulmonary disease, unspecified (principal); R10.12 Left upper quadrant pain; M54.50 Low back pain, unspecified; F10.120 Alcohol abuse with intoxication, uncomplicated; R91.8 Other nonspecific abnormal finding of lung field; I10 Essential (primary) hypertension; F17.210 Nicotine dependence, cigarettes, uncomplicated; Y90.7 Blood alcohol level of 200-239 mg/100 ml; W10.8XXA Fall (on) (from) other stairs and steps, initial encounter; Y93.01 Activity, walking, marching and hiking; Y99.9 Unspecified external cause status
CPT/HCPCS: 36415; 74177; 80053; 83690; 93005; 96360; 99284; 99285; 70450; 71260; 72125; 73610; 80320; 83735; 84484; 85025; 93010; J2930; J3490; J7620